=== PATIENT | male | born 1935 | race Caucasian/White ===

== ENCOUNTER 2023-02-24 21:41 | Emergency (ER) | payer MEDICARE, BC, SELFPAY ==
[2023-02-24 21:45] VITALS: BP 149/77; PULSE 52; RESP 16; TEMP 36.4; O2SAT 99; BMI 23.1
--- NOTE | 2023-02-24 22:11 | CRLHL7_ITS ---
For Patients: As a result of the Century Cures Act, medical imaging exams and procedure reports are released immediately into your electronic medical record. You may view this report before your referring provider. If you have questions, please contact your health care provider. INDICATION: Low back, abdominal pain, history kidney stones TECHNIQUE: CT Abdomen and pelvis without i.v. contrast. Coronal and sagittal reformats were obtained. COMPARISON: 03/13/2017 FINDINGS: Lower chest: Unremarkable. Liver: Unremarkable. Spleen: Unremarkable. Pancreas: Unremarkable. Gallbladder: Multiple calcified gallstones are seen clustered in the gallbladder neck. Kidney: There is a stone within the right renal pelvis measuring 13 mm and a stone is seen within the left renal pelvis measuring 21 mm. No renal pelviectasis is seen in either kidney to suggest obstruction. Two small stones are seen in the upper pole of the right kidney measuring up to 4 mm. There is a stone in the lower pole of the left kidney measuring 15 mm. Low-density renal lesions are present bilaterally measuring up to 5 cm. These are incompletely characterized without the use of intravenous contrast. Adrenal: Unremarkable. Bowel: Unremarkable. The appendix is normal in appearance and size. Vascular: Moderate diffuse atherosclerotic calcifications of the abdominal aorta and its tributaries are present. Lymph: Unremarkable. Peritoneum: Unremarkable. No pneumoperitoneum is seen. No significant ascites is noted. Pelvis: Moderate enlargement of the prostate gland is noted. Soft tissue: Unremarkable. Bone: Unremarkable for age. IMPRESSIONS: 1. There is a stone within the right renal pelvis measuring 13 mm and a stone is seen within the left renal pelvis measuring 21 mm. No renal pelviectasis is seen in either kidney to suggest obstruction. 2. Moderate enlargement of the prostate gland is noted. Correlation with physical examination, PSA level, and/or MRI are recommended. Dictated by Christofer Nielsen MD @ 02/24/2023 11:05:14 PM Please note that all CT scans at this facility use dose modulation, iterative reconstruction, and/or weight-based dosing when appropriate to reduce radiation dose to as low as reasonably achievable. Dictated by: Christofer Nielsen MD @ 02/24/2023 23:05:21 (Electronically Signed)
--- NOTE | 2023-02-24 22:12 | ED.BACK ---
HPI - Back Pain/Injury General Chief Complaint: Back Injury/Pain Stated Complaint: pain in lower back. Time Seen by Provider: 02/24/23 21:45 History of Present Illness HPI Narrative: This 87-year-old male comes in with pain across his low back that began this afternoon. He did take [id number] medicines and his gabapentin without much relief. He does not describe any particular injury event or strenuous activity. He does have remote history of kidney stone but does not report any flank pain. He states that the pain is worse with certain movements and relieved when remaining still. He also reports some abdominal pain in his lower abdomen. Related Data Home Medications Medication Instructions Recorded Confirmed aspirin 81 mg capsule 81 mg PO QDAY 01/31/23 02/24/23 atorvastatin 40 mg tablet 40 mg PO DAILY 01/31/23 02/24/23 donepezil 10 mg tablet 10 mg PO DAILY 01/31/23 02/24/23 ergocalciferol (vitamin D2) 50 mcg 50 mcg PO QDAY 01/31/23 01/31/23 (2,000 unit) capsule gabapentin 300 mg capsule 600 mg PO Q8H 01/31/23 02/24/23 latanoprost 0.005 % eye drops drp ophthalmic (eye) 01/31/23 01/31/23 lisinopril 10 mg tablet 10 mg PO DAILY 01/31/23 02/24/23 mecobalamin (vitamin B12) 500 mcg mcg PO 01/31/23 01/31/23 chewable tablet metoprolol tartrate 25 mg tablet 25 mg PO DAILY 01/31/23 02/24/23 multivitamin (Multiple Vitamins 1 tab PO QAM 01/31/23 02/24/23 tablet) potassium gluconate 500 mg (83 mg) 500 mg PO QDAY 01/31/23 02/24/23 tablet timolol maleate 0.5 % eye drops drp ophthalmic (eye) 01/31/23 01/31/23 Previous Rx's Medication Instructions Recorded hydrocodone 5 mg-acetaminophen 325 1 tab PO Q4-6H PRN pain #15 tabs 02/24/23 mg tablet Allergies Allergy/AdvReac Type Severity Reaction Status Date / Time cyclobenzaprine Allergy Intermediate Severe Verified 02/24/23 21:49 nausea oxycodone Allergy Intermediate Severe Verified 02/24/23 21:49 nausea methocarbamol Allergy Mild Nausea Verified 02/24/23 21:49 Penicillin Allergy Severe Anaphylaxis Uncoded 12/08/22 11:17 Review of Systems Status of ROS: Reports: 10 or more systems reviewed and unremarkable except as noted in History and below Narrative: Constitutional: No fevers, no weight gain or loss. Eyes: No discharge. No vision changes. HENT: No congestion, no sore throat, no ear pain. Cardiovascular: No chest pain, no palpitations. Respiratory: No shortness of breath, no wheezes, no cough. Gastrointestinal: No vomiting, no diarrhea. Diffuse pain in the lower abdomen. Genitourinary: No dysuria, no hematuria. Musculoskeletal: Normal range of motion. Low back pain as described above. Skin: No rashes, no pruritis. Neurological: No dizziness, weakness, sensory change, speech change. Endo/Heme/Allergies: No bruising or bleeding. No polydipsia. Pysch: no suicidality, no anxiety, no insomnia. All other systems reviewed and are negative. [facility] Social History Smoking Status: Never smoker Non-prescribed substance use: denies use Exam Narrative: Exam Narrative: Constitutional: Well-developed, well-nourished, no acute distress. HEENT: Normocephalic, atraumatic. Neck: Normal range of motion. Nontender. Supple. Heart: Regular. No murmurs. Normal rate. Intact distal pulses. Lungs: Clear to auscultation. No chest discomfort. No wheezes, rhonchi, or rales. Abdomen: Normal bowel sounds. Tenderness in the lower abdomen. No rebound tenderness. Genitalia: Deferred. Back: No midline tenderness. Normal range of motion. Pain is located all across the belt line area of the low back bilaterally. No pain radiating down either leg. Extremities: Normal range of motion. No injury. Skin: Intact. No rash. Warm. No erythema or pallor. Neurologic: No altered sensation. No weakness. Alert and oriented. Psychiatric: No suicidality. No anxiety or depression. No insomnia. Nursing notes and vitals signs are reviewed. Const: Vital Signs, click to edit/add: Vital Signs - 24 hr 02/24/23 21:45 Temperature 97.6 F Pulse Rate [Right Pulse Oximeter] 52 L Respiratory Rate 16 Blood Pressure [Le ft Upper Arm] 149/77 H Pulse Oximetry 99 Oxygen Delivery Me thod Room Air Course Vital Signs Vital signs: Initial Vital Signs Temperature 97.6 F 02/24/23 21:45 Temperature Source Temporal Artery Scan 02/24/23 21:45 Pulse Rate 52 L 02/24/23 21:45 Respiratory Rate 16 02/24/23 21:45 Blood Pressure 149/77 H 02/24/23 21:45 Blood Pressure Mean 101 02/24/23 21:45 Blood Pressure Position Sitting 02/24/23 21:45 Pulse Oximetry 99 02/24/23 21:45 Oxygen Delivery Method Room Air 02/24/23 21:45 Vital Signs Temperature 97.6 F 02/24/23 21:45 Pulse Rate 52 L 02/24/23 21:45 Respiratory Rate 16 02/24/23 21:45 Blood Pressure 149/77 H 02/24/23 21:45 Pulse Oximetry 99 02/24/23 21:45 Oxygen Delivery Method Room Air 02/24/23 21:45 Temperature 97.6 F 02/24/23 21:45 Pulse Rate 52 L 02/24/23 21:45 Respiratory Rate 16 02/24/23 21:45 Blood Pressure 149/77 H 02/24/23 21:45 Pulse Oximetry 99 02/24/23 21:45 Oxygen Delivery Method Room Air 02/24/23 21:45 MDM - Back Pain/Injury MDM Narrative Medical decision making narrative: This patient comes in with back pain across his lower back as described above. He does not report any injury event or strenuous activity. His presentation is more suspicious for a musculoskeletal cause for his pain. He does have some abdominal tenderness and reports a history of kidney stones. A CT scan of the abdomen and pelvis without contrast does show very large stones in each kidney. These are nonobstructive and not causing any symptoms for him. His scan is otherwise reassuring. There is a finding of some prostate hypertrophy. The patient did receive an intramuscular injection of morphine 6 mg in this brought great relief to his symptoms. He is okay to return home. His pain is likely musculoskeletal in nature. He did receive a prescription for some tablets of [place]. Imaging Data CT scan - abdomen: Radiologist's impression: 1. There is a stone within the right renal pelvis measuring 13 mm and a stone is seen within the left renal pelvis measuring 21 mm. No renal pelviectasis is seen in either kidney to suggest obstruction. 2. Moderate enlargement of the prostate gland is noted. Correlation with physical examination, PSA level, and/or MRI are recommended. Discharge Plan Discharge Clinical Impression: Low back pain Patient Disposition: Home w/ Parent or Adult Condition: Improved Additional Instructions: Take medication as needed and indicated. Increase activity as tolerated. Follow up with MD or return if worsening. Prescriptions: New hydrocodone-acetaminophen 5-325 mg tablet 1 tab PO Q4-6H PRN (Reason: pain) Qty: 15 0RF No Action donepezil 10 mg tablet 10 mg PO DAILY metoprolol tartrate 25 mg tablet 25 mg PO DAILY gabapentin 300 mg capsule 600 mg PO Q8H lisinopril 10 mg tablet 10 mg PO DAILY atorvastatin 40 mg tablet 40 mg PO DAILY timolol maleate 0.5 % drops ophthalmic (eye) latanoprost 0.005 % drops ophthalmic (eye) potassium gluconate 500 mg (83 mg) tablet 500 mg PO QDAY multivitamin [Multiple Vitamins] Tablet 1 tab PO QAM ergocalciferol (vitamin D2) 50 mcg (2,000 unit) capsule 50 mcg PO QDAY mecobalamin (vitamin B12) 500 mcg tablet,chewable PO aspirin 81 mg capsule 81 mg PO QDAY Follow Up/Referrals: Addison Tamayo MD, FAAD [Staff Physician] - Stand Alone Forms: [email or web address] Info Instructions
[2023-02-24] MEDS: MORPHINE 4 MG/ML INJ 6 MG IM (22:20)
[2023-02-24 23:00] VITALS: BP 123/54; PULSE 60; RESP 16; O2SAT 99
== END 2023-02-24 23:31 | disposition home or self-care (01) ==
PROVIDERS: Emergency Provider Emergency Medicine Emergency Medical Services; PCP Family Medicine
DX: M54.50 Low back pain, unspecified (principal)
CPT/HCPCS: 74176; 96372; 99283; 99284; M0243; J2270

== ENCOUNTER 2024-02-22 19:49 | Emergency (ER) | payer MEDICARE, BC, SELFPAY ==
[2024-02-22 20:04] VITALS: BP 153/93; PULSE 57; RESP 16; TEMP 36.3; O2SAT 97; BMI 26.2
--- NOTE | 2024-02-22 20:59 | CRLHL7_ITS ---
For Patients: As a result of the Cures Act, medical imaging exams and procedure reports are released immediately into your electronic medical record. You may view this report before your referring provider. If you have questions, please contact your health care provider. INDICATION: Sudden onset pelvic hip pain causing fall TECHNIQUE: Pelvis radiograph, Hip radiograph 3 views left COMPARISON: None FINDINGS: Bone: No acute fractures or aggressive bone lesions are identified. Moderate diffuse osteopenia is present. 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 The visualized sacroiliac joints are unremarkable in appearance. The pubic symphysis is normal in appearance. Soft tissue: Unremarkable. The visualized bowel gas pattern of the pelvis is unremarkable in appearance. No radiopaque foreign bodies are seen. IMPRESSION: 1. No acute osseous injuries or abnormalities are noted. Dictated by Christofer Nielsen MD @ 02/22/2024 10:41:45 PM Dictated by: Christofer Nielsen MD @ 02/22/2024 22:41:50 (Electronically Signed)
--- NOTE | 2024-02-22 21:00 | ED.BACK ---
HPI - Back Pain/Injury General Chief Complaint: Back Injury/Pain Stated Complaint: back pain radiating down legs Time Seen by Provider: 02/22/24 20:53 History of Present Illness HPI Narrative: This 88-year-old male comes in reporting severe low back pain on the left side radiating down his left leg below his knee. 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 He states that he was walking and turned and had sudden onset of severe pain that caused him to lose strength in fall to the ground. He states that he was able to get up and ambulate back to his home. He does not report a specific injury event but comes in with severe pain in his left lower back radiating down his left leg. Related Data Home Medications ?Medication ?Instructions ?Recorded ?Confirmed aspirin 81 mg capsule 81 mg PO QDAY 01/31/23 09/30/23 atorvastatin 40 mg tablet 40 mg PO DAILY 01/31/23 09/30/23 donepezil 10 mg tablet 10 mg PO DAILY 01/31/23 09/30/23 ergocalciferol (vitamin D2) 50 mcg 50 mcg PO QDAY 01/31/23 09/30/23 (2,000 unit) capsule gabapentin 300 mg capsule 600 mg PO Q8H 01/31/23 09/30/23 latanoprost 0.005 % eye drops drp ophthalmic (eye) 01/31/23 09/30/23 lisinopril 10 mg tablet 10 mg PO DAILY 01/31/23 09/30/23 mecobalamin (vitamin B12) 500 mcg mcg PO 01/31/23 09/30/23 chewable tablet metoprolol tartrate 25 mg tablet 25 mg PO DAILY 01/31/23 09/30/23 multivitamin (Multiple Vitamins 1 tab PO QAM 01/31/23 09/30/23 tablet) potassium gluconate 500 mg (83 mg) 500 mg PO QDAY 01/31/23 09/30/23 tablet timolol maleate 0.5 % eye drops drp ophthalmic (eye) 01/31/23 09/30/23 Previous Rx's ?Medication ?Instructions ?Recorded hydrocodone 5 mg-acetaminophen 325 1 tab PO Q4-6H PRN pain #15 tabs 02/24/23 mg tablet hydrocodone 5 mg-acetaminophen 325 1 tab PO Q4-6H PRN pain #14 tabs 02/22/24 mg tablet Allergies Allergy/AdvReac Type Severity Reaction Status Date / Time cyclobenzaprine Allergy Intermediate Severe Verified 09/30/23 12:15 nausea oxycodone Allergy Intermediate Severe Verified 09/30/23 12:15 nausea methocarbamol Allergy Mild Nausea Verified 09/30/23 12:15 Penicillin Allergy Severe Anaphylaxis Uncoded 09/30/23 12:15 Review of Systems Status of ROS: Reports: 10 or more systems reviewed and unremarkable except as noted in History and below Narrative: Constitutional: No fevers, no weight gain or loss. Eyes: No discharge. No vision changes. HENT: No congestion, no sore throat, no ear pain. Cardiovascular: No chest pain, no palpitations. Respiratory: No shortness of breath, no wheezes, no cough. Gastrointestinal: No abdominal pain, no vomiting, no diarrhea. Genitourinary: No dysuria, no hematuria. Musculoskeletal: Low back pain radiating down the left leg. Skin: No rashes, no pruritis. Neurological: No dizziness, weakness, sensory change, speech change. Endo/Heme/Allergies: No bruising or bleeding. No polydipsia. Pysch: no suicidality, no anxiety, no insomnia. All other systems reviewed and are negative. PFSH [facility] Social History Smoking Status: Never smoker Non-prescribed substance use: denies use Exam Narrative: Exam Narrative: Constitutional: Well-developed, well-nourished, no acute distress. HEENT: Normocephalic, atraumatic. Neck: Normal range of motion. Nontender. Supple. Heart: Regular. No murmurs. Normal rate. Intact distal pulses. Lungs: Clear to auscultation. No chest discomfort. No wheezes, rhonchi, or rales. Abdomen: Normal bowel sounds. Nontender. No rebound tenderness. Genitalia: Deferred. Back: No midline tenderness. Normal range of motion. Extremities: The patient is unable to raise his left leg from the bed due to pain. He did have some pain with stress to his pelvis and log-rolling his left leg. Skin: Intact. No rash. Warm. No erythema or pallor. Neurologic: No altered sensation. No weakness. Alert and oriented. Psychiatric: No suicidality. No anxiety or depression. No insomnia. Nursing notes and vitals signs are reviewed. Const: Vital Signs, click to edit/add: Vital Signs - 24 hr 02/22/24 20:04 Temperature 97.4 F L Pulse Rate [Pulse Oximeter] 57 L Respiratory Rate 16 Blood Pressure [Ri ght Upper Arm] 153/93 H Pulse Oximetry 97 Oxygen Delivery Me thod Room Air Course Vital Signs Vital signs: Initial Vital Signs Temperature 97.4 F L 02/22/24 20:04 Temperature Source Temporal Artery Scan 02/22/24 20:04 Pulse Rate 57 L 02/22/24 20:04 Respiratory Rate 16 02/22/24 20:04 Blood Pressure 153/93 H 02/22/24 20:04 Blood Pressure Mean 113 H 02/22/24 20:04 Blood Pressure Position Supine 02/22/24 20:04 Pulse Oximetry 97 02/22/24 20:04 Oxygen Delivery Method Room Air 02/22/24 20:04 Vital Signs Temperature 97.4 F L 02/22/24 20:04 Pulse Rate 57 L 02/22/24 20:04 Respiratory Rate 16 02/22/24 20:04 Blood Pressure 153/93 H 02/22/24 20:04 Pulse Oximetry 97 02/22/24 20:04 Oxygen Delivery Method Room Air 02/22/24 20:04 Temperature 97.4 F L 02/22/24 20:04 Pulse Rate 57 L 02/22/24 20:04 Respiratory Rate 16 02/22/24 20:04 Blood Pressure 153/93 H 02/22/24 20:04 Pulse Oximetry 97 02/22/24 20:04 Oxygen Delivery Method Room Air 02/22/24 20:04 Medications Administered Medications: Discontinued Medications Generic Name Dose Route Start Last Admin Trade Name Freq PRN Reason Stop Dose Admin Morphine Sulfate 6 mg 02/22/24 20:58 02/22/24 21:10 Morphine 10 Mg/Ml Inj IM 02/22/24 20:59 6 mg ONCE ONE Administration MDM - Back Pain/Injury MDM Narrative Medical decision making narrative: This patient has chronic low back pain with degenerative disc disease but comes in with sudden severe onset of pain as described above. I did order x-ray of his left hip as he did have difficulty raising his left leg and some pain when log-rolling his left leg. X-ray results are not yet back at the end of my shift and Dr. Soriano will look after results. The patient did receive an intramuscular injection of morphine 6 mg. I did provide [facility] prescriptions for [place] and Flexeril. Discharge Plan Discharge Clinical Impression: Lumbar radiculopathy Prescriptions: New hydrocodone-acetaminophen 5-325 mg tablet 1 tab PO Q4-6H PRN (Reason: pain) Qty: 14 0RF No Action donepezil 10 mg tablet 10 mg PO DAILY metoprolol tartrate 25 mg tablet 25 mg PO DAILY gabapentin 300 mg capsule 600 mg PO Q8H lisinopril 10 mg tablet 10 mg PO DAILY atorvastatin 40 mg tablet 40 mg PO DAILY timolol maleate 0.5 % drops ophthalmic (eye) latanoprost 0.005 % drops ophthalmic (eye) potassium gluconate 500 mg (83 mg) tablet 500 mg PO QDAY multivitamin [Multiple Vitamins] Tablet 1 tab PO QAM ergocalciferol (vitamin D2) 50 mcg (2,000 unit) capsule 50 mcg PO QDAY mecobalamin (vitamin B12) 500 mcg tablet,chewable PO aspirin 81 mg capsule 81 mg PO QDAY hydrocodone-acetaminophen 5-325 mg tablet 1 tab PO Q4-6H PRN (Reason: pain) Qty: 15 0RF Follow Up/Referrals: Marc Shields MD [Primary Care Provider] -
[2024-02-22] MEDS: MORPHINE 10 MG/ML inj 6 MG IM (21:10)
--- OUTSIDE RECORDS SUMMARY | 2024-02-22 21:29 | XMS_ITS | Clinical Summary ---
Author Organization [facility] Address [place], [place] [address] Care Team Providers Care Head Of Stock Name Role Phone Thomas Elena Mora Unavailable Elena Guzman AuD Unavailable [phone] Chuck Ivan MD Unavailable [phone] Don Trujillo MD Unavailable Marc Shields MD Primary Care Provider [phone] Allergies Active Allergy Reactions Criticality Noted Date Comments Cyclobenzaprine Nausea And Vomiting 07/10/2011 Methocarbamol Nausea And Vomiting 07/10/2011 Oxycodone Nausea Only 10/07/2018 Penicillins Anaphylaxis 06/25/2006 Medications Medication Sig Dispensed Refills Start Date End Date Status Walker with Wheels For home use, 99 months, diagnosis: (724.02) Lumbar spinal stenosis, (721.3) Lumbar facet arthropathy 1 Device 0 07/27/2013 Active latanoprost (XALATAN) 0.005 % ophthalmic solutionIndications :Other glaucoma of both eyes Place 1 Drop into left eye at bedtime. 2.5 mL 0 09/10/2015 Active cyanocobalamin (VITAMIN B12) 500 mcg tablet Take by mouth once daily. 0 12/09/2015 Active timolol maleate (TIMOPTIC) 0.5 % ophthalmic solution 11 02/15/2017 Activ e BiPapIndications:OS A (obstructive sleep apnea) ASV machine for home use at pressure: 5cm/H2O PS 3-15 cm/H2O BR-auto , Heated humidifier x 1, Humidifier chamber x 1, 1 Device 11 10/06/2018 Active sennosides (SENNA) 8.6 mg tabletIndications:C hronic constipation Take 2 tablets by mouth 2 times daily if needed for Constipation. 0 01/02/2019 Active vitamin E acetate (VITAMIN E ORAL) Take 180 mg by mouth 2 times daily. Active potassium gluconate 595 mg (99 mg) TbER Take 99 mg by mouth 2 times daily. Active MULTIVITAMIN ORAL Take 1 Dose by mouth 2 times daily. Active BiPapIndications:OS A (obstructive sleep apnea) ASV/BIPAP machine for home use at pressure: epap 5 PS 3-15, full face mask x1/3month with a full face cushion x1/mo Heated humidifier x 1/5 year, Humidifier chamber x 1/6mo, Heated tubing x 1/3mo, Headgear x 1/6mo,Chin strap x 1/6 months, Filters:Disposable x 2pk/1mo & Reusable x 1pk/6mo [id number] Usage- daily 1 Device 05/23/2020 Active aspirin (ECOTRIN) 81 mg enteric coated tabletIndications:C oronary artery disease involving chenega coronary artery of chenega heart without angina pectoris Take 1 Tablet (81 mg) by mouth once daily with a meal. 0 07/29/2022 Active acetaminophen (TYLENOL EXTRA STRGTH) 500 mg tablet Take 1,000 mg by mouth three times daily. Max acetaminophen dose: 4000mg in 24 hrs. Active atorvastatin (LIPITOR) 40 mg tabletIndications:C oronary artery disease involving chene[place] coronary artery of chene[place] heart without angina pectoris,Mixed hyperlipidemia Take 1 Tablet (40 mg) by mouth once daily. 90 Tablet 3 07/23/2023 Active donepeziL (ARICEPT) 10 mg tabletIndications:L ate onset Alzheimer's disease without behavioral disturbance (HC) Take 1 Tablet (10 mg) by mouth at bedtime. 90 Tablet 3 07/23/2023 Active gabapentin (NEURONTIN) 300 mg capsuleIndications: Neck pain, chronic,Polyneuropa thy,Spinal stenosis of lumbar region with neurogenic claudication Take 2 Capsules (600 mg) by mouth three times daily. 540 Capsule 3 07/23/2023 Active lisinopriL (PRINIVIL; ZESTRIL) 10 mg tabletIndications:E ssential hypertension Take 1 Tablet (10 mg) by mouth once daily. 90 Tablet 3 07/23/2023 Active metoprolol tartrate (LOPRESSOR) 25 mg tabletIndications:C oronary artery disease involving chenega coronary artery of chene[place] heart without angina pectoris,Essential hypertension Take 1 Tablet (25 mg) by mouth once daily in the evening. 90 Tablet 3 07/23/2023 Active Active Problems Problem Noted Date Diagnosed Date Late onset Alzheimer's disea se without behavioral disturbance 08/27/2020 Overview: Refuses MMSE testing. Pulse is in 40s as of 07/23/2023. They will monitor his pulse and if it gets below 40 or he gets symptoms, they will let me know. 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 myoview stress test 06/28/06 ERLIN x1 to LAD 08/30/2019 Foraminal stenosis of cervical region 11/25/2018 Polyneuropathy 11/22/2018 Primary central sleep apnea 10/06/2018 Gallbladder calculus without cholecystitis 12/09 Nephrolithiasis 12/10/2015 Overview: Bilateral , multiple calculi. Diverticulosis of large intestine without hemorr lorena 12/10/2015 OAS 11/25/2015 AHI-12, severe in supine position 0 12/09/2015 Essential hypertension 09/10/2015 Glaucoma of both eyes 09/10/2015 Stiffness of vertebral colum n, possible ankylosing spondylitis 03/05/2014 Spinal stenosis of lumbar re gion with neurogenic claudication 08/27/2013 Radiculopathy of leg 06/14/2013 Chronic rhinitis 09/05/2012 Cervical stenosis of spinal canal 04/11/2012 Insomnia, unspecified 07/30/2010 Overview: Improved sleep after omitting wine with dinner. 07/10/2011 Impaired fasting glucose 02/09/2010 Left arm pain 10/09/2009 Overview: Due to cervical osteoarthritis? Sensorineural hearing loss, bilateral 01/25/2009 Special screening for malignant neoplasm of pros wallace 02/01/2008 Adjustment disorder with mixed anxiety and depre ssed mood 07/12/2007 BILE ACID REFLUX 07/08/2007 ROUTINE GENERAL MEDICAL EXAM 04/21/2007 Overview: colonoscopy 03/02/2005 Recheck 10 yrs Mixed hyperlipidemia 01/04/2007 Peyronie's disease 11/04/2006 Renal colic 11/04/2006 Degeneration of cervical intervertebral disc History of coronary artery disease Overview: LAD/D stents 1997; angio [address] angio 06/25/06; stents patent; prob not significant in stent restenosis Nl EF Neg. myoview stress test 06/28/06 Resolved Problems Problem Noted Date Diagnosed Date Resolved Date History of coronary artery disease 04/26/2019 04/26/2019 Unspecified glaucoma 08/06/2010 016 Chest pain, unspecified 07/04/2007 07/0 12/2009 Overview: -c/o exertional chest pain Unspecified sleep apnea 11/04/200609/24 Unspecified glaucoma 11/04/2006 016 Chest pain, unspecified 06/25/2006 1101/2006 Esophageal reflux 08/06/2010 Immunizations Name Administration Dates Next Due AMB Influenza, IIV3 (Age >=3 years)(Flu Clinic Only) 05/26/2013,05/25/2012,06/11/2010,2007 COVID-19 vaccine (Moderna 50mcg/0.5mL) 12YO+ BIVALENT PF, MDV 05/19/2022 COVID-19 vaccine (VISup-Bio NTech 30mcg/0.3mL) PF, MDV 06/05/2021,10/19/2020,09/28/2020 Influenza A (H1N1), Inactiva kirill (Age >=3 Years) 08/27/2009 Influenza, High-dose Inactivated 019,06/17/2018,05/20/2017,2015,04/23/2016,05/20/2015,06/15/2014 Influenza, High-dose Quadriv alent Inactivated 05/19/2023,06/08/2022,05/09/2021,2019 Influenza, IIV3 (Age >=3 years) 05/27/2011,06/28,06/23/2006 Influenza, Inactivated AIIV4 (Age 65+ Years) Preserv Free 05/09/2021 Influenza, Inactivated IIV3 (Age 65+ Years) Preserv Free 04/25/2020,06/15/2019,05/23/2018,2016 Pneumococcal Poly,23-Valent (Pneumovax) 12/22/2003 Pneumococcal conj 13-Valent (Prevnar 13) 09/10/2015 Td (Age >=7 Years) 10/05/2006 Td, Preservative Free (age > = 7 Years) 10/05/2006 Tdap 07/29/2012 Zoster (Shingrix-RZV, recombinant) 07/06/2018, Zoster (Zostavax-ZVL, live) 01/04/2007 Family History Medical History Relation Name Comments Psychiatric illness Daughter 2 Evelyn Social A nxiety Heart Disease Father Xavi undiagnosed Rh eumatic Fever as a Child Psychiatric illness Father Xavi alzheime rs Cancer-prostate Maternal Grandfather Diabetes Maternal Grandfather Cancer Mother Aliza bone Kidney disease Mother Aliza Diabetes Paternal Grandfather Relation Name Status Comments Brother Gil Alive Daughter 1 evelyn Alive Daughter 2 Evelyn Father Xavi (Age 88) Maternal Grandfather Mother Aliza (Age 49) Paternal Grandfather Son 1 xavi Alive Son 2 shin Alive Adopted Social History Tobacco Use Types Packs/Day Years Used Date Smoking Tobacco: Former Cigarettes 1 30 1 - 06/15/1977 Smokeless Tobacco: Never Tobacco Cessation:Counseling Given: Not Answered Alcohol Use Standard Drinks/Week Comments Not Currently 0 (1 standard drink = 0.6 oz pur e alcohol) 2 times per year PHQ-2 Answer Date Recorded PHQ-2 TOTAL SCORE 1 07/23/2023 Social Connections Answer Date Recorded Frequency of Communication with Friends and Fami ly 0 07/23/2023 Financial Resource Strain Answer Date R ecorded Difficulty of Paying Living Expenses 3 07/23/2023 Difficulty of Paying Living Expenses Not on file 07/23/2023 Food Insecurity Answer Date Recorded Worried About Running Out of Food in the Last Ye ar 1 07/23/2023 Transportation Needs Answer Date Record ed Lack of Transportation (Medical) 1 07/23/2023 Housing Stability Answer Date Recorded Unable to Pay for Housing in the Last Year 1 07/23/2023 Sex and Gender Information Value Date Recorded Sex Assigned at Not on file Gender Identity Not on file Sexual Orientation Not on file Obstetrics History Last Filed Vital Signs Vital Sign Reading Time Taken Comments Blood Pressure 103/63 07/23/2023 9:[address] [facility] Pulse 46 07/23/2023 9:[address] [facility] manual check Temperature 36.4 ??C (97.6 ??F) 05/26/2023 9 :17 AM CDT Respiratory Rate 16 06/25/2020 10:[address] [facility] Oxygen Saturation 100% 05/26/2023 9:1 7 AM CDT Inhaled Oxygen Concentration - - Weight 89.7 kg (197 lb 12.8 oz) 07/23/2023 9:[address] [facility] Height 190.5 cm (6' 3) 07/23/2023 9:[address] MAGISTRATE Body Mass Index 24.72 07/23/2023 9:[address] MAGISTRATE Plan of Treatment Health Maintenance Due Date Last Done Comments Tetanus booster 07/29/2022 07/29/2012, 09/23, 10/05/2006 COVID-19 vaccine series ( season) 2023 05/19/2022, 12/10/2021, 06/05/2021, Additional history exists Influenza for age 65+ 04/23/2024 05/19/2023 , 06/08/2022, 05/09/2021, Additional history exists BMI (ht and wt on same day) for age 18+ 07/23/2024 07/23/2023, 12/02/2021, 05/13/2021, Additional history exists Medicare Wellness for age 65+ 07/23/2024, 06/26/2020, 09/10/2015, Additional history exists Tdap Completed 07/29/2012 Pneumococcal series for age 65+ Completed 6, 12/22/2003 Zoster (shingles) series for age 50+ Completed 07/06/2018, 02/16/2018, 01/04/2007 Advance Directives Documents on File Type Date Recorded Patient Certified Nursing Assistant Instructor Expl anation Power of Lock Operator 10/21/2006 Healthcare Directive 10/21/2006 * Full Code (Latest Code Status on File) Date Activated Date Inactivated Comments 08/30/2019 9:07 AM 08/31/2019 12:50 PM * Full Code Date Activated Date Inactivated Comments 07/03/2007 7:52 PM 07/04/2007 5:46 PM * Full Code Date Activated Date Inactivated Comments 10/19/2006 7:11 PM 10/20/2006 3:42 PM * Full Code Date Activated Date Inactivated Comments 10/19/2006 1:46 PM 10/19/2006 7:11 PM * Full Code Date Activated Date Inactivated Comments 06/25/2006 2:32 PM 06/28/2006 6:27 PM Care Teams Head Of Stock Relationship Specialty Start Date End Date Marc Shields [place] [address] PCP - General Family Practice 06/11/22 Elena Guzman AuD Audiology 10/23/05 Elena Guzman AuD Audiology 07/29/12 Chuck Ivan MD Surgery - Otolaryngology 07/29/12 Don Trujillo MD [address] [place] [id number] Sports Medicine 07/29/12
[2024-02-22] MEDS: ONDANSETRON ODT 4 MG TAB PO (23:45)
[2024-02-22] MEDS: IBUPROFEN 200 MG TABLET 400 MG PO (23:47)
[2024-02-22] MEDS: OXYCODONE 5 MG TABLET PO (23:47)
[2024-02-22] MEDS: LIDOCAINE 5% PATCH 1 PATCH TRANSDERMA (23:52)
== END 2024-02-23 00:42 | disposition home or self-care (01) ==
PROVIDERS: Emergency Provider Emergency Medicine Emergency Medical Services; PCP Family Medicine
DX: M54.16 Radiculopathy, lumbar region (principal)
CPT/HCPCS: 73502; 96372; 99283; 99284; A9270; J2270

== ENCOUNTER 2024-10-04 10:00 | Emergency (ER) | payer MEDICARE, BC, SELFPAY ==
[2024-10-04] VITALS (22 sets, daily range): BP systolic 144–182; BP diastolic 70–135; PULSE 47–58; RESP 18–20; TEMP 36.4–36.6; O2SAT 96–98; BMI 25.6
--- NOTE | 2024-10-04 10:46 | ED.GENADULT ---
HPI - General Adult General Date Seen: 10/04/24 Chief complaint: Unspecified Complaint, Adult Stated complaint: Hypertension Time Seen by Provider: 10/04/24 10:45 History of Present Illness HPI narrative: 89 yo M with a history of dementia, hypertension, coronary artery disease, hyperlipidemia, glaucoma, history of gallstones, diverticulosis, cervical stenosis kidney stones, His medication list from online [facility] include Acetaminophen p.r.n. Aspirin 81 mg Atorvastatin Vitamin B12 Donepezil Neurontin 600 mg t.i.d. (for neck pain and neuropathy) Xalatan eyedrops Timolol eyedrops Lisinopril 10 mg Potassium tablets Senna p.r.n. He presents to the ER today after being referred from urgent care. provides most of his history because of his dementia. He was referred from the urgent care. Per the urgent care notes he was referred because he was not feeling well this morning. Blood pressure in urgent care was 216/94. Pulse 63. Temp 97.5?. O2 sat 94%. Because of his elevated blood pressure urgent care staff wanted to send the patient to the ER by ambulance. His did not think he was set sick so she brought him here by private car. The history is obtained primarily from the patient's . Patient has dementia and is a very poor historian. It sounds like he is more confused than baseline today. Be when asked the patient what is wrong, he really can not answer. He seems to indicate that he could not figure out where he was or what he was doing. He is not able to answer simple questions. For instance if I ask him if he has a headache, he pauses, seems to think, and then does not answer. He is not having any slurred speech or expressive aphasia History from his that he does have dementia but is normally ambulatory and able to care for himself at home. They got up at about 7 today. He did get himself dressed and then came down for breakfast. He did not want eat breakfast and apparently just was not feeling well. This was very unusual for him. She could get any further information from him about what was not well. Unclear if he was having pain, nausea, shortness of breath or what. He is still very confused but seems to be a little bit more acting himself now that he is here in the ER. He does have new bilateral lower extremity peripheral edema. says she has not really noted that before. It sounds like she does not look carefully at his ankles every day so unclear if that truly started stay orbits been there for several days. He does not take any diuretics. is not aware of any history of CHF. Related Data Home Medications ?Medication ?Instructions ?Recorded ?Confirmed aspirin 81 mg capsule 81 mg PO QDAY 01/31/23 10/04/24 atorvastatin 40 mg tablet 40 mg PO DAILY 01/31/23 10/04/24 donepezil 10 mg tablet 10 mg PO DAILY 01/31/23 10/04/24 ergocalciferol (vitamin D2) 50 mcg 50 mcg PO QDAY 01/31/23 10/04/24 (2,000 unit) capsule latanoprost 0.005 % eye drops 1 drp ophthalmic (eye) HS 01/31/23 10/04/24 lisinopril 10 mg tablet 10 mg PO DAILY 01/31/23 10/04/24 mecobalamin (vitamin B12) 500 mcg mcg PO 01/31/23 10/04/24 chewable tablet metoprolol tartrate 25 mg tablet 25 mg PO DAILY 01/31/23 10/04/24 multivitamin (Multiple Vitamins 1 tab PO QAM 01/31/23 10/04/24 tablet) potassium gluconate 500 mg (83 mg) 500 mg PO QDAY 01/31/23 10/04/24 tablet timolol maleate 0.5 % eye drops 1 drp ophthalmic (eye) Q12H 01/31/23 10/04/24 gabapentin 300 mg capsule 600 mg PO Q8H 10/04/24 10/04/24 Previous Rx's ?Medication ?Instructions ?Recorded cefdinir 300 mg capsule 300 mg PO BID 7 days #14 caps 10/04/24 Allergies Allergy/AdvReac Type Severity Reaction Status Date / Time cyclobenzaprine Allergy Intermediate Severe Verified 10/04/24 12:26 nausea oxycodone Allergy Intermediate Severe Verified 10/04/24 12:26 nausea methocarbamol Allergy Mild Nausea Verified 10/04/24 12:26 Penicillins Allergy Anaphylaxis Verified 10/04/24 12:26 PFSH PFSH Social History Smoking Status: Never smoker Do you use any of these nicotine containing products: None Second hand tobacco smoke exposure: No How often do you have a drink containing alcohol: never How often do you have six or more drinks on one occasion: Never AUDIT-C Alcohol total score: 0 Non-prescribed substance use: denies use service: No Exam Narrative: Exam Narrative: Constitutional: Appears well-developed and well-nourished. Sleeping but easily arouses to voice and once awakened seems to maintain alertness. He is polite. He is very confused. He has generalized weakness and is not able to sit up in bed unassisted. He is not able to answer questions HENT: Head: Atraumatic. No depressed skull fracture, Raccoon Eyes, Menezes's sign, or hemotympanum. Face normal. TMs normal Nose: Nose normal. Mouth/Throat: Oral mucosa is clear and moist. no trismus. Pharynx normal. Tonsils symmetric. No tonsillar enlargement, erythema, or exudate. Eyes: Conjunctivae normal. EOM normal. Pupils equal, round, and reactive to light. No scleral icterus. Neck: Normal range of motion. Neck supple. No tracheal deviation present. No JVD Cardiovascular: Normal rate, regular rhythm. No gallop. No friction rub. No murmur heard. Symmetric radial artery pulses Pulmonary/Chest: Effort normal. No stridor. No respiratory distress. No wheezes. No rales. No rhonchi . No tenderness. Abdominal: Soft. No CVA tenderness.. No distension. No mass. No tenderness. No rebound. No guarding. Musculoskeletal: RUE: Normal range of motion. No tenderness. No deformity LUE: Normal range of motion. No tenderness. No deformity RLE: Normal range of motion. 2+ edema. No tenderness. No deformity LLE: Normal range of motion. 2+ edema. No tenderness. No deformity Lymph: No cervical adenopathy. Neurological: Alert and oriented to person, but not place or date. It sounds like he does have chronic dementia but is worse than normal.. Normal strength. CN II-VII intact. No sensory deficit. GCS eye subscore is 4. GCS verbal subscore is 5. GCS motor subscore is 6. Normal coordination no focal deficits. Generalized weakness. Telegraph [employer] strength 5/5. Unable to sit forward in bed due to weakness. Able to lift each leg off the bed. Skin: Skin is warm and dry. No rash noted. No pallor. Normal capillary refill. Psychiatric: Normal mood. Normal affect. Const: Vital Signs, click to edit/add: Vital Signs - 24 hr 10/04/24 10:29 10/04/24 10:52 10/04/24 11:00 Temperature 97.9 F Pulse Rate 50 L 53 L Pulse Rate [Pulse Oximeter] 54 L Respiratory Rate 18 Blood Pressure Blood Pressure [Ri ght Upper Arm] 170/82 H Pulse Oximetry 98 96 96 Oxygen Delivery Me thod Room Air 10/04/24 11:02 10/04/24 11:02 10/04/24 11:15 Temperature Pulse Rate 55 L 55 L 50 L Pulse Rate [Pulse Oximeter] Respiratory Rate Blood Pressure 161/89 H 161/89 H Blood Pressure [Ri ght Upper Arm] Pulse Oximetry 97 97 97 Oxygen Delivery Me thod 10/04/24 11:30 10/04/24 11:32 10/04/24 11:45 Temperature Pulse Rate 48 L 48 L 49 L Pulse Rate [Pulse Oximeter] Respiratory Rate Blood Pressure 162/70 H Blood Pressure [Ri ght Upper Arm] Pulse Oximetry 96 97 97 Oxygen Delivery Me thod 10/04/24 12:00 10/04/24 12:24 10/04/24 12:30 Temperature 97.6 F Pulse Rate 54 L 53 L Pulse Rate [Pulse Oximeter] Respiratory Rate Blood Pressure Blood Pressure [Ri ght Upper Arm] Pulse Oximetry 97 97 Oxygen Delivery Me thod 10/04/24 12:32 10/04/24 12:45 10/04/24 13:00 Temperature Pulse Rate 53 L 50 L 50 L Pulse Rate [Pulse Oximeter] Respiratory Rate Blood Pressure 158/78 H Blood Pressure [Ri ght Upper Arm] Pulse Oximetry 97 98 97 Oxygen Delivery Me thod 10/04/24 13:02 10/04/24 13:15 10/04/24 13:33 Temperature Pulse Rate 50 L 56 L Pulse Rate [Pulse Oximeter] Respiratory Rate Blood Pressure 167/76 H 166/135 H Blood Pressure [Ri ght Upper Arm] Pulse Oximetry 97 96 Oxygen Delivery Me thod 10/04/24 13:38 10/04/24 13:45 10/04/24 14:07 Temperature Pulse Rate 58 L 47 L Pulse Rate [Pulse Oximeter] Respiratory Rate Blood Pressure 144/83 H Blood Pressure [Ri ght Upper Arm] Pulse Oximetry 98 97 Oxygen Delivery Me thod 10/04/24 14:34 10/04/24 16:31 Temperature Pulse Rate Pulse Rate [Pulse Oximeter] 54 L Respiratory Rate 20 Blood Pressure 182/77 H Blood Pressure [Ri ght Upper Arm] 180/83 H Pulse Oximetry 96 Oxygen Delivery Me thod Room Air Course Course ED Course: Recheck-patient looking a bit more alert now. Still disoriented and apparently some closer to his baseline with dementia. Still somewhat weak Recheck-nurse's note he was able to get up and walk in the hallway to go try to go to the bathroom. In the bathroom he was confused and having trouble pulling down his pants. Reevaluation(s) Reevaluation #1: Recheck-discussed with hospitalist who would agree to admit the patient for weakness and confusion in the setting of UTI and possible CHF Recheck-discussed plans with the patient and his . is noting that he is now doing much better than he was when he arrived. Although our initial impression is that he would probably need to be admitted for weakness and confusion he is doing better now. She expresses her preference to take him home. She and I had a detailed discussion. The patient's nurses feel that he is still confused and weak and would be best to stay in the hospital. My recommendation was for the patient to be admitted as well. Concern here is potential risk for worsening illness, such as developing sepsis with UTI and also potential for problems with breathing if he has CHF. It would be safest to admit him where he can be in a monitored setting. However if we admit him to the hospital he is at risk for sundowning and worsening delirium. feels that there would be advantages to taking him home, specifically that he seems to be more cogent and less confused in his home environment. She and I discussed the risk that he might get weaker or dizzy or fall leading to injury at home. Overall she feels that the benefits of discharging home would outweigh the risks. She would prefer not to keep him in the hospital. At this point his blood pressure is stable. He is able to ambulate. She was able to assist him in getting dressed. She feels comfortable taking him home. Return precautions reviewed After this discussion I updated our hospitalist and we cancelled his plans for admission He will need outpatient follow-up with PCP for recheck within the next 2-4 days with repeat labs, chest x-ray. Precautions for return to the ER reviewed. They are invited to return any time if feels like he is getting worse or more unsteady Vital Signs Vital signs: Initial Vital Signs Temperature 97.9 F 10/04/24 10:29 Temperature Source Temporal Artery Scan 10/04/24 10:29 Pulse Rate 54 L 10/04/24 10:29 Respiratory Rate 18 10/04/24 10:29 Blood Pressure 170/82 H 10/04/24 10:29 Blood Pressure Mean 111 H 10/04/24 10:29 Pulse Oximetry 98 10/04/24 10:29 Oxygen Delivery Method Room Air 10/04/24 10:29 Vital Signs Temperature 97.9 F 10/04/24 10:29 Pulse Rate 54 L 10/04/24 10:29 Respiratory Rate 18 10/04/24 10:29 Blood Pressure 170/82 H 10/04/24 10:29 Pulse Oximetry 98 10/04/24 10:29 Oxygen Delivery Method Room Air 10/04/24 10:29 Temperature 97.6 F 10/04/24 12:00 Pulse Rate 54 L 10/04/24 16:31 Respiratory Rate 20 10/04/24 16:31 Blood Pressure 180/83 H 10/04/24 16:31 Pulse Oximetry 96 10/04/24 16:31 Oxygen Delivery Method Room Air 10/04/24 16:31 Medications Administered Medications: Discontinued Medications Generic Name Dose Route Start Last Admin Trade Name Freq PRN Reason Stop Dose Admin Acetaminophen 1,000 mg 10/04/24 11:05 10/04/24 11:35 Acetaminophen 500 Mg Tablet PO 10/04/24 11:06 1,000 mg ONCE ONE Administration Sodium Chloride 1,000 mls @ 1,000 mls/hr 10/04/24 11:15 10/04/24 11:35 0.9 % Sodium Chloride 1000 Ml IV 10/04/24 12:14 1,000 mls/hr .Q1H LEXY Administration Ceftriaxone Sodium 1 gm/ 100 mls @ 200 mls/hr 10/04/24 14:29 10/04/24 15:48 Sodium Chloride IVPB 10/04/24 14:30 Infused ONCE ONE Infusion Medical Decision Making MDM Narrative Medical decision making narrative: 89-year-old male with a history of dementia brought to the ER today from home by his with concern for acute change. This morning he just felt ?not well. In here in the ER he has generalized nonfocal weakness and acute on chronic confusion Neuro. No focal deficits to suggest stroke. No known fall and is not anticoagulated. Head CT is obtained and is negative for any acute intracranial hemorrhage, mass effect, hydrocephalus, or other abnormality. No reported of seizure activity. Blood sugar is normal. He is not febrile. Cardiac. EKG is nonischemic. Troponin is negative x2. No clear evidence for active ACS causing his symptoms. Consider possible CHF . Does have new bilateral lower extremity peripheral edema. Chest x-ray shows tiny bilateral pleural effusions and mild prominence of the pulmonary interstitial markings. In terminal proBNP is abnormal at 12:50 p.m.. No previous for comparison. He is not hypoxic or particularly short of breath. Renal. Kidney function normal. Sodium and potassium and electrolytes normal GI. No vomiting or diarrhea. LFTs normal. Lipase normal. He did have some abdominal tenderness on exam prompting CT which shows no acute findings. He does have incidentally noted bilateral intrarenal kidney stones which are not thought to be causing any symptoms. He also has gallstones without any evidence for acute cholecystitis or any focal right upper quadrant tenderness. Heme. Hemoglobin normal. No recent black or bloody stools. White count normal. Platelet count normal. He is not anticoagulated Infectious disease. Chest x-ray shows no obvious pneumonia. Influenza/RSV/COVID swab is negative. Urinalysis is abnormal showing hematuria and pyuria. Suspect there could be a UTI. Blood cultures pending. Will start with Rocephin IV here in the ER. At this point no clear sepsis physiology Disposition. Given overall confusion and generalized weakness, is not stable to discharge home with his , who is attentive, but unable to care for him in his current state. Therefore he will require admission. Discussed with hospitalist [] Lab Data Labs: Lab Results 10/04/24 10/04/24 10/04/24 Range/Units 11:20 13:19 Unknown WBC 9.69 (4.50-11.00) K/uL RBC 4.05 L (4.30-5.90) m/uL Hgb 13.7 (13.5-17.5) gm/dL Hct 41.3 (37.0-53.0) % MCV 102 H (80-100) fL MCH 34 (26-34) pg MCHC 33 (32-36) gm/dL RDW Coeff of [place]ita 12.8 (11.5-15.5) % Plt Count 150 (140-440) K/uL Neut % (Auto) 77.8 H (42.0-72.0) % Lymph % (Auto) 13.4 L (20-44) % [place] % (Auto) 8.0 (0.0-11.0) % Eos % (Auto) 0.3 (0.0-7.0) % Baso % (Auto) 0.3 (0.0-3.0) % Neut # (Auto) 7.50 H (1.7-7.0) K/uL Lymph # (Auto) 1.30 (0.90-2.90) K/uL [place] # (Auto) 0.80 (0.00-0.90) K/UL Eos # (Auto) 0.03 (0.00-0.50) K/uL Baso # (Auto) 0.03 (0.00-0.30) K/uL Abs Immat Gran (auto) 0.02 (0.00-0.30) K/uL Imm/Tot Granulo (auto) 0.2 % VBG pH 7.413 (7.32-7.43) VBG pCO2 48 (40-50) mmHG VBG pO2 30.5 (25-47) mmHG VBG HCO3 31 H (21-28) mmol/L Sodium 144 (135-149) mmol/L Potassium 3.7 (3.6-5.1) mmol/L Chloride 107 (96-114) mmol/L Carbon Dioxide 30 (20-32) mmol/L Anion Gap 7 (7-15) mEq/L BUN 17 (7-30) mg/dL Creatinine 0.7 (0.5-1.5) mg/dL Estimated Creat Clear 63.89 Estimated GFR 89 ml/min Glucose 119 H (60-115) mg/dL Lactate 0.8 (0.5-1.9) mmol/L Calcium 8.9 (8.4-10.6) mg/dL Total Bilirubin 1.3 (0.1-1.5) mg/dL AST 27 (12-35) U/L ALT 24 (4-50) U/L Alkaline Phosphatase 80 (40-150) U/L Troponin I 0.03 0.04 (0.01-0.04) ng/mL NT-Pro-B Natriuret Pep 2450 pg/mL Total Protein 6.2 (6.0-8.3) g/dL Albumin 4.0 (3.3-5.0) g/dL Lipase 92 (23-300) U/L Urine Color Yellow (Yellow) Urine Appearance Cloudy A (Clear) Urine pH 5.5 (5.0-8.5) Ur Specific [place] 1.015 (1.000-1.030) Urine Protein 2+ A (Negative) Urine Glucose (UA) Negative (Negative) Urine Ketones Trace A (Negative) Urine Blood 3+ A (Negative) Urine Nitrite Negative (Negative) Urine Bilirubin Negative (Negative) Urine Urobilinogen 0.2 (0.2-1.0) Ur Leukocyte Esterase Negative (Negative) Urine RBC 50-100 A (0-2) Urine WBC 5-10 A (0-5) Ur Squamous Epith Cells None (None-Few) Urine Bacteria None (None) SARS-CoV-2 (PCR) Negative SARS-CoV-2 (Negative) Influenza Type A (PCR) Negative PCR FLU A (Negative) Influenza Type B (PCR) Negative PCR FLU B (Negative) RSV (PCR) Negative PCR RSV (Negative) Imaging Data Chest x-ray: Attestation: I have reviewed the pertinent imaging results. Radiologist's impression: IMPRESSION: Trace bilateral pleural effusion. Mild diffuse prominence of the pulmonary interstitial markings such as could be seen with edema or infection. CT scan - head: Attestation: I have reviewed the pertinent imaging results. Radiologist's impression: IMPRESSION: No acute findings. CT scan - abdomen: Attestation: I have reviewed the pertinent imaging results. Radiologist's impression: IMPRESSION: 1. Small bilateral pleural effusions. 2. Moderate hepatic steatosis. 3. Cholelithiasis without CT evidence of acute cholecystitis. 4. No hydronephrosis. Nonobstructing bilateral renal calculi measuring up to 1.1 centimeter on the right and 2.0 centimeter on the left are again seen; these are within the renal pelvis. 5. Moderate stool burden. 6. Moderately enlarged prostate. ECG Data Attestation: I personally reviewed and interpreted this ECG as follows: Interpretation: Sinus bradycardia Rate: 54 SC: 194 QRS axis: He LVH. Left axis deviation. No pathologic Q-waves. R, S, R prime in V1. Nonspecific. ST segment/T wave: No ST segment elevation or depression QTc: 485 Discharge Plan Discharge Clinical Impression: Altered mental status, Acute UTI Patient Disposition: Home, Self-Care Condition: Stable Instructions: Urinary Tract Infection in Men (DC), Altered Mental Status (ED) Additional Instructions: As we discussed, you have signs of a bladder infection on your urine sample today. Your received your 1st dose of antibiotic here in the ER. Take your next dose of antibiotics at home tomorrow morning. Someone from the hospital will call you in 1 or 2 days if we need to change your antibiotics. If you get worse-for instance, if you have fever, worsening weakness, more confusion, falls, please come back to the ER right away. You do have signs of fluid building up in your ankles. I am concerned that you may have a condition called congestive heart failure (CHF). Sometimes people with CHF require water pills and diuretics. Please recheck with your regular doctor by next Wednesday for re-evaluation, repeat labs, and repeat x-ray. If you have any chest pain or trouble breathing, come back to the ER right away Prescriptions: New cefdinir 300 mg capsule 300 mg PO BID 7 Days Qty: 14 0RF No Action donepezil 10 mg tablet 10 mg PO DAILY metoprolol tartrate 25 mg tablet 25 mg PO DAILY lisinopril 10 mg tablet 10 mg PO DAILY atorvastatin 40 mg tablet 40 mg PO DAILY timolol maleate 0.5 % drops 1 drp ophthalmic (eye) Q12H latanoprost 0.005 % drops 1 drp ophthalmic (eye) HS potassium gluconate 500 mg (83 mg) tablet 500 mg PO QDAY multivitamin [Multiple Vitamins] Tablet 1 tab PO QAM ergocalciferol (vitamin D2) 50 mcg (2,000 unit) capsule 50 mcg PO QDAY mecobalamin (vitamin B12) 500 mcg tablet,chewable PO aspirin 81 mg capsule 81 mg PO QDAY gabapentin 300 mg capsule 600 mg PO Q8H Patient Comments: TAKE 2 CAPSULES (600 MG) BY MOUTH THREE TIMES DAILY. Follow Up/Referrals: Marc Shields MD [Primary Care Provider] - Stand Alone Forms: [employer] [facility] Info Instructions
--- OUTSIDE RECORDS SUMMARY | 2024-10-04 11:29 | XMS_ITS | Clinical Summary ---
Author Organization [employer] [facility] [employer] Address [place], [place] [address] Care Team Providers Care Aerobics Teacher Name Role Phone Elena Orellana AuD Unavailable [phone] Elena Orellana AuD Unavailable [phone] Chuck Ivan MD Unavailable [phone] Don Trujillo MD Unavailable Marc Shields MD Primary Care Provider [phone] Allergies Active Allergy Reactions Criticality Noted Date Comments Cyclobenzaprine Nausea And Vomiting 07/10/2011 Methocarbamol Nausea And Vomiting 07/10/2011 Oxycodone Nausea Only 10/07/2018 Penicillins Anaphylaxis 06/25/2006 Medications Walker with Wheels For home use, 99 months, diagnosis: (724.02) Lumbar spinal stenosis, (721.3) Lumbar facet arthropathy 1 Device 0 07/27/20 13 Active latanoprost (XALATAN) 0.005 % ophthalmic solutionIndication s:Other glaucoma of both eyes Place 1 Drop into left eye at bedtime. 2.5 mL 0 09/10/19 16 Active cyanocobalamin (VITAMIN B12) 500 mcg tablet Take by mouth once daily. 0 12/09/19 16 Active timolol maleate (TIMOPTIC) 0.5 % ophthalmic solution 11 02/16/20 17 Active BiPapIndications:O SA (obstructive sleep apnea) ASV machine for home use at pressure: 5cm/H2O PS 3-15 cm/H2O BR-auto , Heated humidifier x 1, Humidifier chamber x 1, 1 Device 11 10/06/19 19 Active sennosides (SENNA) 8.6 mg tabletIndications: Chronic constipation Take 2 tablets by mouth 2 times daily if needed for Constipation. 0 01/03/20 19 Active vitamin E acetate (VITAMIN E ORAL) Take 180 mg by mouth 2 times daily. Active potassium gluconate 595 mg (99 mg) TbER Take 99 mg by mouth 2 times daily. Active MULTIVITAMIN ORAL Take 1 Dose by mouth 2 times daily. Active BiPapIndications:O SA (obstructive sleep apnea) ASV/BIPAP machine for home use at pressure: epap 5 PS 3-15, full face mask x1/3month with a full face cushion x1/mo Heated humidifier x 1/5 year, Humidifier chamber x 1/6mo, Heated tubing x 1/3mo, Headgear x 1/6mo,Chin strap x 1/6 months, Filters:Disposabl e x 2pk/1mo & Reusable x 1pk/6mo [id number] Usage- daily 1 Device 05/23/20 20 Active aspirin (ECOTRIN) 81 mg enteric coated tabletIndications: Coronary artery disease involving [place] coronary artery of [place] heart without angina pectoris Take 1 Tablet (81 mg) by mouth once daily with a meal. 0 07/29/20 22 Active acetaminophen (TYLENOL EXTRA STRGTH) 500 mg tablet Take 1,000 mg by mouth three times daily. Max acetaminophen dose: 4000mg in 24 hrs. Active donepeziL (ARICEPT) 10 mg tabletIndications: Late onset Alzheimer's disease without behavioral disturbance (HC) Take 1 Tablet (10 mg) by mouth at bedtime. 90 Tablet 3 07/23/20 23 Active metoprolol tartrate (LOPRESSOR) 25 mg tabletIndications: Coronary artery disease involving [place] coronary artery of [place] heart without angina pectoris,Essential hypertension TAKE 1 TABLET (25 MG) BY MOUTH ONCE DAILY IN THE EVENING. 90 Tablet 07/20/20 24 Active gabapentin (NEURONTIN) 300 mg capsuleIndications :Neck pain, chronic,Polyneurop athy,Spinal stenosis of lumbar region with neurogenic claudication TAKE 2 CAPSULES (600 MG) BY MOUTH THREE TIMES DAILY. 540 Capsule 07/20/20 24 Active atorvastatin (LIPITOR) 40 mg tabletIndications: Coronary artery disease involving [place] coronary artery of [place] heart without angina pectoris,Mixed hyperlipidemia TAKE 1 TABLET (40 MG) BY MOUTH ONCE DAILY. 90 Tablet 07/20/20 24 Active lisinopriL (PRINIVIL; ZESTRIL) 10 mg tabletIndications: Essential hypertension TAKE 1 TABLET (10 MG) BY MOUTH ONCE DAILY. 90 Tablet 07/20/20 24 Active Active Problems Problem Noted Date Diagnosed Date Late onset Alzheimer's disea se without behavioral disturbance 08/27/2020 Overview (07/23/2023): Refuses MMSE testing. Pulse is in 40s as of 07/23/2023. They will monitor his pulse and if it gets below 40 or he gets symptoms, they will let me know. Neck pain, chronic 03/12/2020 Coronary artery disease invo lving [place] coronary artery of [place] heart without angina pectoris 04/26/2019 Overview (08/31/2019): LAD/D stents 1997; angio [address] angio 06/25/06; stents patent; prob not significant in stent restenosis Nl EF Neg. myoview stress test 06/28/06 ERLIN x1 to LAD 08/30/2019 Foraminal stenosis of cervical region 11/25/2018 Polyneuropathy 11/22/2018 Primary central sleep apnea 10/06/2018 Gallbladder calculus without cholecystitis 12/09 Nephrolithiasis 12/10/2015 Overview (12/10/2015): Bilateral , multiple calculi. Diverticulosis of large [...] of spinal canal 04/11/2012 Insomnia, unspecified 07/30/2010 Overview (07/10/2011): Improved sleep after omitting wine with dinner. 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, bilateral 01/25/2009 Special screening for malignant neoplasm of pros wallace 02/01/2008 Adjustment disorder with mixed anxiety and depre ssed mood 07/12/2007 BILE ACID REFLUX 07/08/2007 ROUTINE GENERAL MEDICAL EXAM 04/21/2007 Overview (04/21/2007): colonoscopy 03/02/2005 Recheck 10 yrs Mixed hyperlipidemia 01/04/2007 Peyronie's disease 11/04/2006 Renal colic 11/04/2006 Degeneration of cervical intervertebral disc History of coronary artery disease Overview (06/28/2006): LAD/D stents 1997; angio [address] angio 06/25/06; stents patent; prob not significant in stent restenosis Nl EF Neg. myoview stress test 06/28/06 Resolved Problems Problem Noted Date Diagnosed Date Resolved Date History of coronary artery disease 04/26/2019 04/26/2019 Unspecified glaucoma 08/06/2010 016 Chest pain, unspecified 07/04/200712/2009 Overview (07/04/2007): -c/o exertional chest pain Unspecified sleep apnea 11/04/200609/24 Unspecified glaucoma 11/04/2006 016 Chest pain, unspecified 06/25/200601/2006 Esophageal reflux 08/06/2010 Encounters Date Type Department Care Team Description 09/12/2024 Orders Only [facility] Scanner 1 scan: (1-Ord) TAREEN DERMATOLOGY, MOHS; LEFT CENTRAL ZYGOMA, 09/12/2024 08/11/2024 Orders Only [facility] Scanner 1 scan: (1-Ord) TAREEN DERMATOLOGY, SHAVE BIOPSY, 08/11/2024 07/17/2024 Refill [facility] [address] [place] [address] Marc Shields MD Refill Request (Metoprolol Tartrate, Gabapentin, Atorvastatin, Lisinopril) from Last 3 Months Immunizations Name Administration Dates Next Due AMB Influenza, IIV3 (Age >=3 years)(Flu Clinic Only) 05/26/2013,05/25/2012,06/11/2010,2007 COVID-19 vaccine (Moderna 50mcg/0.5mL) 12YO+ BIVALENT PF, MDV 05/19/2022 COVID-19 vaccine (Pfizer-Bio NTech 30mcg/0.3mL) PF, MDV 06/05/2021,10/19/2020,09/28/2020 Influenza A [...] 1 07/23/2023 Social Connections Answer Date Recorded Do you often feel lonely or isolated from those around you? 0 07/23/2023 Financial Resource Strain Answer Date R ecorded Difficulty of Paying Living Expenses 3 07/23/2023 Difficulty of Paying Living Expenses Not on file 07/23/2023 Food Insecurity Answer Date Recorded Do you worry your food will run out before you are able to buy more? 1 07/23/2023 Transportation Needs Answer Date Record ed Does lack of transportation keep you from medica l appointments? 1 07/23/2023 Does lack of transportation keep you from work, meetings or getting things that you need? 1 07/23/2023 Housing Stability Answer Date Recorded What is your housing situation today? 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 Gender Identity Not on file Sexual Orientation Not on file Occupation Industry Job Start Date Job End Date Retired [employer] Not on file Not on file N ot on file Obstetrics History Last Filed Vital Signs Vital Sign Reading Time Taken Comments Blood Pressure 103/63 07/23/2023 9:13 AM BEHAVIORAL HEALTH THERAPIST Pulse 46 07/23/2023 9:13 AM BEHAVIORAL HEALTH THERAPIST manual check Temperature 36.4 C (97.6 F) 05/26/2023 9:17 AM CDT Respiratory Rate 16 06/25/2020 10:2 0 AM BEHAVIORAL HEALTH THERAPIST Oxygen Saturation 100% 05/26/2023 9:1 7 AM CDT Inhaled Oxygen Concentration - - Weight 89.7 kg (197 lb 12.8 oz) 07/23/2023 9:13 AM BEHAVIORAL HEALTH THERAPIST Height 190.5 cm (6' 3) 07/23/2023 9:13 AM BEHAVIORAL HEALTH THERAPIST Body Mass Index 24.72 07/23/2023 9:13 AM BEHAVIORAL HEALTH THERAPIST Plan of Treatment Health Maintenance Due Date Last Done Comments RSV vaccine for adults or (1 - 1-dose 75+ series) 2012 Tetanus booster 07/29/2022 07/29/2012, 09/23, 10/05/2006 COVID-19 vaccine series ( season) 2024 05/19/2022, 12/10/2021, 06/05/2021, Additional history exists Influenza for age 65+ 04/23/2024 05/19/2023 , 06/08/2022, 05/09/2021, Additional history exists BMI (ht and wt on same day) for age 18+ 07/23/2024 07/23/2023, 12/02/2021, 05/13/2021, Additional history exists Medicare Wellness for age 65+ 07/23/2024, 06/26/2020, 09/10/2015, Additional history exists Tdap Completed 07/29/2012 Pneumococcal series for age 50+ Completed 6, 12/22/2003 Zoster (shingles) series for age 50+ Completed 07/06/2018, 02/16/2018, 01/04/2007 Procedures Procedure Name Priority Date/Time Associated Diagnosis Comments SCAN-OPERATIVE/PROC EDURE REPORT 09/12/2024 12:00 AM BEHAVIORAL HEALTH THERAPIST SCAN-OPERATIVE/PROC EDURE REPORT 08/11/2024 12:00 AM BEHAVIORAL HEALTH THERAPIST from Last 3 Months Results * SCAN-OPERATIVE/PROCEDURE REPORT (09/12/2024 12:00 AM BEHAVIORAL HEALTH THERAPIST) us Scanner OTHER Final Result * SCAN-OPERATIVE/PROCEDURE REPORT (08/11/2024 12:00 AM BEHAVIORAL HEALTH THERAPIST) us Scanner OTHER Final Result from Last 3 Months Insurance MEDICARE PART B HB ONLY MEDICARE PART A HB ONLY [place] BLUE HB ONLY [place] BLUE MR PB ONLY Advance Directives Documents on File Type Date Recorded Patient Combination Saw Operator Expl anation Power of Beef Boner 10/21/2006 Healthcare Directive 10/21/2006 * Full Code [...] 2:32 PM 06/28/2006 6:27 PM Care Teams Aerobics Teacher Relationship Specialty Start Date End Date Marc Shields MD [address] [place] [address] PCP - General Family Practice 06/11/22 Elena Orellana AuD Audiology 10/23/05 Elena Orellana AuD Audiology 07/29/12 Chuck Ivan MD Surgery - Otolaryngology 07/29/12 Don Trujillo MD [address] [place] [address] Sports Medicine 07/29/12
[2024-10-04 11:31] LABS: Lactate* 0.8 mmol/L (0.5-1.9)
[2024-10-04 11:35] LABS: Basophils Absolute Auto 0.03 K/uL (0.00-0.30); Basophils Percent Auto 0.3 % (0.0-3.0); Eosinophils Absolute Auto 0.03 K/uL (0.00-0.50); Eosinophils Percent Auto 0.3 % (0.0-7.0); Hematocrit 41.3 % (37.0-53.0); Hemoglobin* 13.7 gm/dL (13.5-17.5); Immature Granulocytes Abs Auto 0.02 K/uL (0.00-0.30); Immature Granulocytes Pct Auto 0.2 %; Lymphocytes Percent Auto 13.4 % (20-44); Mean Corpuscular HGB Conc 33 gm/dL (32-36); Mean Corpuscular Hemoglobin 34 pg (26-34); Mean Corpuscular Volume 102 fL (80-100); Neutrophils Percent Auto 77.8 % (42.0-72.0); Platelet Count* 150 K/uL (140-440); RDW Coefficient of Variation % 12.8 % (11.5-15.5); Red Blood Count 4.05 m/uL (4.30-5.90); White Blood Count* 9.69 K/uL (4.50-11.00)
[2024-10-04] MEDS: ACETAMINOPHEN 500 MG TABLET 1000 MG PO (11:35)
[2024-10-04] MEDS: 0.9 % SODIUM CHLORIDE 1000 ml 1,000 ML IV (11:35)
[2024-10-04 11:36] LABS: Slide Review Reflex No
[2024-10-04 11:48] LABS: Chloride* 107 mmol/L (96-114); Potassium* 3.7 mmol/L (3.6-5.1); Sodium* 144 mmol/L (135-149)
[2024-10-04 11:50] LABS: Creatinine* 0.7 mg/dL (0.5-1.5); Est. Creatinine Clearance* 63.89; Estimated Glomerular Filt Rate 89 ml/min
[2024-10-04 11:51] LABS: Alanine Aminotransferase* 24 U/L (4-50); Alkaline Phosphatase* 80 U/L (40-150); Anion Gap 7 mEq/L (7-15); Aspartate Amino Transferase* 27 U/L (12-35); Bilirubin Total* 1.3 mg/dL (0.1-1.5); Blood Urea Nitrogen* 17 mg/dL (7-30); Carbon Dioxide* 30 mmol/L (20-32); Glucose* 119 mg/dL (60-115); Lipase* 92 U/L (23-300); Total Protein* 6.2 g/dL (6.0-8.3)
[2024-10-04 11:52] LABS: Calcium* 8.9 mg/dL (8.4-10.6)
[2024-10-04 12:03] LABS: Troponin I* 0.03 ng/mL (0.01-0.04)
[2024-10-04 12:10] LABS: NT Pro B Type NatriureticPept* 2450 pg/mL; PCR FLU A Negative PCR FLU A (Negative); PCR FLU B Negative PCR FLU B (Negative); PCR RSV Negative PCR RSV (Negative); SARS PCR* Negative SARS-CoV-2 (Negative)
[2024-10-04 14:03] LABS: Troponin I* 0.04 ng/mL (0.01-0.04)
[2024-10-04 14:06] LABS: Appearance Urine Cloudy (Clear); Bilirubin Urine Negative (Negative); Blood Urine 3+ (Negative); Color Urine Yellow (Yellow); Glucose Urine Negative (Negative); Ketones Urine Trace (Negative); Leukocyte Esterase Urine Negative (Negative); Nitrite Urine Negative (Negative); Protein Urine 2+ (Negative); Specific Gravity Urine 1.015 (1.000-1.030); Urobilinogen Urine 0.2 (0.2-1.0); pH Urine 5.5 (5.0-8.5)
[2024-10-04 14:25] LABS: RBC Urine 50-100 (0-2)
[2024-10-04] MEDS: cefTRIAXone 1 GM in 0.9 % SODIUM CHLORIDE Mini-bag 100 ML IVPB (15:05)
[2024-10-04 15:45] LABS: HCO3 VBG 31 mmol/L (21-28); PCO2 VBG 48 mmHG (40-50); PO2 VBG 30.5 mmHG (25-47); pH VBG 7.413 (7.32-7.43)
== END 2024-10-04 16:58 | disposition home or self-care (01) ==
PROVIDERS: Emergency Provider Emergency Medicine; PCP Family Medicine
DX: R41.82 Altered mental status, unspecified (principal); N39.0 Urinary tract infection, site not specified
CPT/HCPCS: 36415; 70450; 71046; 74177; 80053; 81001; 82803; 83605; 83690; 83880; 84484; 85025; 87040; 87086; 87631; 93005; 96365; 99284; 99285; A9270; J0696; J7030; Q9967

== ENCOUNTER 2025-01-28 15:18 | Outpatient (CLI) | payer MEDICARE, BC, SELFPAY | END 2025-01-28 15:19 | disposition home or self-care (01) | PROVIDERS: PCP Family Medicine; Visit Provider Internal Medicine | DX: R07.89 Other chest pain (principal); F03.90 Unspecified dementia, unspecified severity, without behavioral disturbance, psychotic disturbance, mood disturbance, and anxiety | CPT/HCPCS: A0425; A0427 ==

== ENCOUNTER 2025-01-28 16:14 | Emergency (ER) | payer MEDICARE, BC, SELFPAY ==
--- OUTSIDE RECORDS SUMMARY | 2025-01-28 16:15 | XMS_ITS | Clinical Summary ---
Author Organization [email or web address] [facility] [employer] [facility] Address [address] [place] [address] Care Team Providers Care Admissions Assistant Name Role Phone Elena Orellana AuD Unavailable [phone] Elena Orellana AuD Unavailable [phone] Chuck Ivan MD Unavailable Don Trujillo MD Unavailable Huang Cool MD Primary Care Provider [phone] Allergies Active Allergy Reactions Criticality Noted Date Comments Cyclobenzaprine Nausea And Vomiting 07/10/2011 Methocarbamol Nausea And Vomiting 07/10/2011 Oxycodone Nausea Only 10/07/2018 Penicillins Anaphylaxis 06/25/2006 Medications Walker with Wheels For home use, 99 months, diagnosis: (724.02) Lumbar spinal stenosis, (721.3) Lumbar facet arthropathy 1 Device 0 07/27/20 13 Active latanoprost (XALATAN) 0.005 % ophthalmic solutionIndicati ons:Other glaucoma of both eyes Place 1 Drop into left eye at bedtime. 2.5 mL 0 09/10/19 16 Active cyanocobalamin (VITAMIN B12) 500 mcg tablet Take by mouth once daily. 0 12/09/19 16 Active timolol maleate (TIMOPTIC) 0.5 % ophthalmic solution 11 02/16/20 17 Active vitamin E acetate (VITAMIN E ORAL) Take 180 mg by mouth 2 times daily. Active potassium gluconate 595 mg (99 mg) TbER Take 99 mg by mouth 2 times daily. Active MULTIVITAMIN ORAL Take 1 Dose by mouth 2 times daily. Active BiPapIndications :ERENDIRA (obstructive sleep apnea) ASV/BIPAP machine for home [...] Active aspirin (ECOTRIN) 81 mg enteric coated tabletIndication s:Coronary artery disease involving [place] coronary artery of [place] heart without angina pectoris Take 1 Tablet (81 mg) by mouth once daily with a meal. 0 07/29/20 22 Active acetaminophen (TYLENOL EXTRA STRGTH) 500 mg tablet Take 1,000 mg by mouth three times daily. Max acetaminophen dose: 4000mg in 24 hrs. Active donepeziL (ARICEPT) 10 mg tabletIndication s:Late onset Alzheimer's disease without behavioral disturbance (HC) Take 1 Tablet (10 mg) by mouth at bedtime. 90 Tablet 3 11/06/19 25 Active lisinopriL (PRINIVIL; ZESTRIL) 10 mg tabletIndication s:Essential hypertension Take 1 Tablet (10 mg) by mouth once daily. 90 Tablet 3 11/06/19 25 Active metoprolol tartrate (LOPRESSOR) 25 mg tabletIndication s:Essential hypertension,Cor onary artery disease involving [place] coronary artery of [place] heart without angina pectoris Take 1 Tablet (25 mg) by mouth once daily in the evening. 90 Tablet 3 11/06/19 25 Active Active Problems Problem Noted Date Diagnosed Date Late onset Alzheimer's disea se without behavioral disturbance 08/27/2020 Overview (07/23/2023): Refuses MMSE testing. Pulse is in 40s as of 07/23/2023. They will monitor his pulse and if it gets below 40 or he gets symptoms, they will let me know. Neck pain, chronic 03/12/2020 Coronary artery disease invo lving [place] coronary artery of [place] heart without angina pectoris 04/26/2019 Overview (08/31/2019): [...] 03/02/2005 Recheck 10 yrs Mixed hyperlipidemia 01/04/2007 Overview (11/05/2024): October 2024: Stopping Atorvastatin (Lipitor) due to age/ dementia state. Peyronie's disease 11/04/2006 Renal colic 11/04/2006 Degeneration [...] Encounters Date Type Department Care Team Description 11/02/2024 1:00 PM CDT Office Visit [facility] [address] [place] [address] Huang Cool MD Memory Loss (Having memory issues, BP Check) 11/02/2024 Travel from Last 3 Months Immunizations Immunization Administration Dates Next Due AMB Influenza, IIV3 (Age >=3 years)(Flu Clinic Only) 05/26/2013,05/25/2012,06/11/2010,06/13 COVID-19 VACCINE (MODERNA 25MCG/0.25ML) 6MO-11YO PFS 10/19/2023 COVID-19 VACCINE SPIKEVAX (M ODERNA 50MCG/0.5ML) 12YO+ PFS 05/08/2024 COVID-19 vaccine (Moderna 50 mcg/0.5mL) 12YO+ BIVALENT PF, MDV 05/19/2022 COVID-19 vaccine (Pfizer-Bio NTech 30mcg/0.3mL) PF, MDV 12/10/2021,06/05/2021,10/19/2020,09/28 Influenza A (H1N1), Inactiva kirill (Age >=3 Years) 08/27/2009 Influenza, High-dose Inactivated 024,06/02/2019,06/17/2018,05/20,05/26/2016,04/23/2016,05/20/2015 ,06/15/2014 Influenza, High-dose Quadriv alent Inactivated 05/19/2023,06/08/2022,05/09/2021,04/26 Influenza, IIV3 (Age >=3 years) 05/27/2011,06/28,06/23/2006 Influenza, Inactivated AIIV4 (Age 65+ Years) Preserv Free 05/09/2021 Influenza, Inactivated IIV3 (Age 65+ Years) Preserv Free 06/19/2024,04/25/2020,06/15/2019,05/23,05/23/2017 Pneumococcal Poly,23-Valent (Pneumovax) 12/22/2003 Pneumococcal conj 13-Valent (Prevnar 13) 09/10/2015 RSV, Recombinant ADJ Reconst ituted (Arexvy 120MCG/0.5mL) 09/15/2023 Td (Age >=7 Years) 10/05/2006 Td, Preservative Free (age >= 7 Years) 7 Tdap 07/29/2012 Tdap, Unspecified 11/02/2023 Zoster (Shingrix-RZV, recombinant) 07/06/2018, Zoster (Zostavax-ZVL, live) [...] or isolated from those around you? 0 10/16/2024 Financial Resource Strain Answer Date R ecorded Difficulty of Paying Living Expenses 3 10/16/2024 Difficulty of Paying Living Expenses Not on file 10/16/2024 Food Insecurity Answer Date Recorded Do you worry your food will run out before you are able to buy more? 1 10/16/2024 Transportation Needs Answer Date Record ed Does lack of transportation keep you from medica l appointments? 1 10/16/2024 Does lack of transportation keep you from work, meetings or getting things that you need? 1 10/16/2024 Housing Stability Answer Date Recorded What is your housing situation today? 1 10/16/2024 Utilities Answer Date Recorded Do you have trouble paying f or utilities (for example, heat, electricity, water, phone)? 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 Not on file N ot on file Obstetrics History Last Filed Vital Signs Vital Sign Reading Time Taken Comments Blood Pressure 117/67 11/02/2024 1:04 PM CDT Pulse 59 11/02/2024 1:04 PM CDT Temperature 36.4 C (97.6 F) 05/26/2023 9:17 AM CDT Respiratory Rate 16 06/25/2020 10:20 AM MILK ROUTE SUPERVISOR Oxygen Saturation 97% 11/02/2024 1:04 PM CDT Inhaled Oxygen Concentration - - Weight 87.5 kg (193 lb) 11/02/2024 1:04 PM CDT Height 190.5 cm (6' 3) 07/23/2023 9:13 AM MILK ROUTE SUPERVISOR Body Mass Index 24.12 07/23/2023 9:13 AM MILK ROUTE SUPERVISOR Plan of Treatment Health Maintenance Due Date Last Done Comments BMI (ht and wt on same day) for age 18+ 07/23/2024 07/23/2023, 12/02/2021, 05/13/2021, Additional history exists Medicare Wellness for age 65+ 07/23/2024 07/23/2023, 06/26/2020, 09/10/2015, Additional history exists COVID-19 vaccine series ( season) 2024 05/08/2024, 10/19/2023, 05/19/2022, Additional history exists Tetanus booster 11/01/2033 11/02/2023, 1202/2012, 10/05/2006, Additional history exists Pneumococcal series for age 50+ Completed 09/10/2015, 12/22/2003 Zoster (shingles) series for age 50+ Completed 07/06/2018, 02/16/2018, 01/04/2007 RSV vaccine for adults or Completed 09/15/2023 Tdap Completed 11/02/2023, 07/29/2012 Influenza Vaccine Completed 06/19/2024, , 05/09/2021, Additional history exists Hepatitis B series for 19+ Aged Out N o longer eligible based on patient's age to complete this topic Insurance MEDICARE PART B HB ONLY MEDICARE PART A HB ONLY [place] BLUE HB ONLY [place] BLUE MR PB ONLY Advance Directives Documents on File Type Date Recorded 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
[2025-01-28 16:16] VITALS: BP 159/69; PULSE 65; RESP 20; TEMP 36.6; O2SAT 99; BMI 25.4
--- NOTE | 2025-01-28 16:27 | ED.GENADULT ---
HPI - General Adult General Date Seen: 01/28/25 Chief complaint: Unspecified Complaint, Adult Stated complaint: Chest Pain Time Seen by Provider: 01/28/25 16:21 History of Present Illness HPI narrative: This is an 89-year-old gentleman with significant dementia which limits his ability to provide history. He also has a past medical history of glaucoma and possibly hypertension (on lisinopril and metoprolol. when he was here in the ER in September blood pressure was elevated at about 200/90s). He also has a history of coronary artery disease with stents about 4 years ago. He is on aspirin, metoprolol, statin, lisinopril) History from the paramedics who brought him in is that he has dementia but lives at home with his . He often will wander away from home. Apparently today he wanted away from home and his family could not find him for about an hour. [place]. He apparently walked down quite a steep hill into a ravine it was about 100 [address] into the [place]. Paramedics are surprised he made it that far because he normally walks with a cane and he will was so steep they really feel like he could have fallen. It does not look like he fell. Was confused and at baseline when they tried to bring him up. Because he was unsteady ultimately paramedics and fire fighters carried him back up the hill. While they were picking him up he seemed to have some chest pain. But it is unclear if he really did or not. They are not sure if he was just overwhelmed by the situation in all the strangers. since paramedics had the patient in the ambulance he has not had any complaints or any chest pain. Upon arrival here in the ER the patient does hold his hand over his left anterior chest and indicates he has pain there. Additional history from his and daughter are that he does have dementia. He is at his usual baseline mental status. It is unusual, but not unheard of, for him to wander off alone. His does not like him to do that. Today he had wanted off and his and daughter were searching for him. His daughter actually found him in the [place] at having traveled down a steep hill. She was not able to get him back up to the house out of the [place] on her own. She notes they had a little bit of dirt on the back of his sure that she suspects that he probably lost his balance and fell against a tree. She doubts that he fell down to the ground because he she does not think he would been strong enough to get himself off the ground, if he had actually fallen. His daughter was not able to coax him out of the [place] on her own so she called 911. First responders and paramedics arrived and they were able to carry the patient out of the [place]. While they were caring him out he did temporarily complain of back pain while he was on a backboard. Also during that process he had some anterior chest pain that came and went. says that he normally walks up and down his driveway a couple of times a day. His driveway is 1/3 of a mi long. She has not noted any other recent episodes of exertional chest pain or dyspnea or any other concerning symptoms. No swelling in his legs. No fever. No cough. No abdominal pain. Related Data Home Medications ?Medication ?Instructions ?Recorded ?Confirmed aspirin 81 mg capsule 81 mg PO QDAY 01/31/23 10/04/24 atorvastatin 40 mg tablet 40 mg PO DAILY 01/31/23 10/04/24 donepezil 10 mg tablet 10 mg PO DAILY 01/31/23 10/04/24 ergocalciferol (vitamin D2) 50 mcg 50 mcg PO QDAY 01/31/23 10/04/24 (2,000 unit) capsule latanoprost 0.005 % eye drops 1 drp ophthalmic (eye) HS 01/31/23 10/04/24 lisinopril 10 mg tablet 10 mg PO DAILY 01/31/23 10/04/24 mecobalamin (vitamin B12) 500 mcg mcg PO 01/31/23 10/04/24 chewable tablet metoprolol tartrate 25 mg tablet 25 mg PO DAILY 01/31/23 10/04/24 multivitamin (Multiple Vitamins 1 tab PO QAM 01/31/23 10/04/24 tablet) potassium gluconate 500 mg (83 mg) 500 mg PO QDAY 01/31/23 10/04/24 tablet timolol maleate 0.5 % eye drops 1 drp ophthalmic (eye) Q12H 01/31/23 10/04/24 gabapentin 300 mg capsule 600 mg PO Q8H 10/04/24 10/04/24 Previous Rx's ?Medication ?Instructions ?Recorded cefdinir 300 mg capsule 300 mg PO BID 7 days #14 caps 10/04/24 Allergies Allergy/AdvReac Type Severity Reaction Status Date / Time cyclobenzaprine Allergy Intermediate Severe Verified 10/04/24 12:26 nausea oxycodone Allergy Intermediate Severe Verified 10/04/24 12:26 nausea methocarbamol Allergy Mild Nausea Verified 10/04/24 12:26 Penicillins Allergy Anaphylaxis Verified 10/04/24 12:26 PFSH [facility] Social History Smoking Status: Never smoker Do you use any of these nicotine containing products: None Second hand tobacco smoke exposure: No How often do you have a drink containing alcohol: never How often do you have six or more drinks on one occasion: Never AUDIT-C Alcohol total score: 0 Non-prescribed substance use: denies use service: No Exam Narrative: Exam Narrative: Constitutional: Appears well-developed and well-nourished. Alert. Conversant. Non toxic. HENT: Head: Atraumatic. Nose: Nose normal. Mouth/Throat: Oral mucosa is clear and moist. no trismus. Pharynx normal. Tonsils symmetric. No tonsillar enlargement, erythema, or exudate. Eyes: Conjunctivae normal. EOM normal. Pupils equal, round, and reactive to light. No scleral icterus. Neck: Normal range of motion. Neck supple. No tracheal deviation present. Cardiovascular: Normal rate, regular rhythm. No gallop. No friction rub. No murmur heard. Symmetric radial and PT artery pulses Pulmonary/Chest: Effort normal. No stridor. No respiratory distress. No wheezes. No rales. No rhonchi . He does have left anterolateral chest wall tenderness. No bruising. No rash. Abdominal: Soft. Bowel sounds normal. No distension. No mass. No tenderness. No rebound. No guarding. Musculoskeletal: RUE: Normal range of motion. No tenderness. No deformity LUE: Lifting his left arm does cause a little bit of left chest pain. This limits his forward flexion of his shoulder. No tenderness. No deformity RLE: Normal range of motion. No edema. No tenderness. No deformity LLE: Normal range of motion. No edema. No tenderness. No deformity Neurological: Alert and oriented to person, but not place or date. This is his baseline mental status. Poor historian but cooperative. Normal strength. CN II-VII intact. No sensory deficit. GCS eye subscore is 4. GCS verbal subscore is 5. GCS motor subscore is 6. Normal coordination Skin: Skin is warm and dry. No rash noted. No pallor. Normal capillary refill. Psychiatric: Normal mood. At time seems to be anxious and and once endorses that he feels afraid. Very cooperative with his and daughter. His family are very attentive. Const: Vital Signs, click to edit/add: Vital Signs - 24 hr 01/28/25 16:16 01/28/25 18:12 Temperature 97.9 F 97.6 F Pulse Rate [Pulse Oximeter] 65 81 Respiratory Rate 20 18 Blood Pressure [Ri ght Upper Arm] 159/69 H 161/87 H Pulse Oximetry 99 97 Oxygen Delivery Me thod Room Air Room Air Course Vital Signs Vital signs: Initial Vital Signs Temperature 97.9 F 01/28/25 16:16 Temperature Source Temporal Artery Scan 01/28/25 16:16 Pulse Rate 65 01/28/25 16:16 Pulse Rhythm Regular 01/28/25 16:16 Respiratory Rate 20 01/28/25 16:16 Blood Pressure 159/69 H 01/28/25 16:16 Blood Pressure Mean 99 01/28/25 16:16 Blood Pressure Position Sitting 01/28/25 16:16 Pulse Oximetry 99 01/28/25 16:16 Oxygen Delivery Method Room Air 01/28/25 16:16 Vital Signs Temperature 97.9 F 01/28/25 16:16 Pulse Rate 65 01/28/25 16:16 Respiratory Rate 20 01/28/25 16:16 Blood Pressure 159/69 H 01/28/25 16:16 Pulse Oximetry 99 01/28/25 16:16 Oxygen Delivery Method Room Air 01/28/25 16:16 Temperature 97.6 F 01/28/25 18:12 Pulse Rate 81 01/28/25 18:12 Respiratory Rate 18 01/28/25 18:12 Blood Pressure 161/87 H 01/28/25 18:12 Pulse Oximetry 97 01/28/25 18:12 Oxygen Delivery Method Room Air 01/28/25 18:12 Medications Administered Medications: Discontinued Medications Generic Name Dose Route Start Last Admin Trade Name Freq PRN Reason Stop Dose Admin Aspirin 162 mg 01/29/25 09:00 01/28/25 18:21 Aspirin 81 Mg Tab.Chew PO 162 mg DAILY LEXY Administration Fentanyl 25 mcg 01/28/25 16:49 01/28/25 17:36 Fentanyl 100 Mcg/2 Ml Inj IVP 01/28/25 16:50 25 mcg ONCE ONE Administration Medical Decision Making MDM Narrative Medical decision making narrative: 89-year-old gentleman with known dementia who is at his baseline mental status is brought to the ER today by EMS because he wandered away from home and went into the [place], down a steep hill and then could not get back out of the [facility]. In terms of his mental status his and daughter feel that he is at his baseline. He does not have any signs of head trauma and has no known falls. At this point we have low suspicion for intracranial bleed or other infection or metabolic process causing an acute delirium superimposed on his chronic dementia. Initially the call to 911 was simply to get help getting the patient out of the [facility] with a plan for him to stay at home with his and daughter. However during the extraction process he also complained of chest pain. He has a known history of coronary disease with stents placed about 4 years ago. Chest pain seemed to come and go during the instruction process and it is not clear if it is musculoskeletal, cardiac, or anxiety. He did have another episode of chest pain when he arrived here in the ER and on my exam he complained of chest pain and tenderness with palpation of the left anterior chest wall at the bottom edge of the pack. Discussed the differential for the chest pain with the patient's and daughter. They would like to pursue workup to see if his any serious cause such as VA, PE, rib fracture. We hope that is musculoskeletal. Based on his dementia and age, they would generally trend toward supportive care rather than aggressive interventions but they would like workup to find out what is wrong for they make any decisions about plan of care. We did obtain EKG which is nonischemic and initial and 2 hour delta troponin are normal. At this point no evidence for active STEMI or NSTEMI. We do consider the possibility for possible unstable angina but since the pain seems to be reproducible and trigger 4 by palpation it seems more likely to be musculoskeletal. In discussion with the patient's family, since he has dementia as a really would not want to be hospitalized and oblique it is appropriate to push for hospitalization or stress testing at this point. Discussed the potential for angina and his daughter and will monitor for that. If he has worsening symptoms or if they want further workup they are encouraged come back to the ER right away. Otherwise they will manage supportively for musculoskeletal pain. There is note of a pulmonary nodule on his chest CT. Discussed in detail with his and his daughter. We discussed the low likelihood but non 0 likelihood of cancer. We discussed the recommendation for 6 month follow-up CT. They endorse that they really would not want him to have any treatment for cancer if it were present and therefore there really is no reason for follow-up imaging. I think it is reasonable for them to avoid the six-month follow-up CT. However I did provide the radiologist recommendations and writing so that if they change their mind they can follow-up for surveillance scan. In terms of the patient's dementia they have been considering possible placement in a memory care. However they feel that today's episode really just reflexes baseline dementia and an episode where he got out of there site. They are comfortable and preferred to keep him at home rather than have him admitted for placement at this time. I think that is reasonable. At this point he seems to be well groomed, well cared for. I do not have any suspicion for elder neglect. Lab Data Labs: Lab Results 01/28/25 01/28/25 01/28/25 Range/Units 16:50 17:01 19:05 WBC 7.40 (4.50-11.00) K/uL RBC 4.12 L (4.30-5.90) m/uL Hgb 14.0 (13.5-17.5) gm/dL Hct 41.5 (37.0-53.0) % MCV 101 H (80-100) fL MCH 34 (26-34) pg MCHC 34 (32-36) gm/dL RDW Coeff of Catrachita 12.7 (11.5-15.5) % Plt Count 190 (140-440) K/uL Neut % (Auto) 79.0 H (42.0-72.0) % Lymph % (Auto) 11.9 L (20-44) % Castro % (Auto) 8.0 (0.0-11.0) % Eos % (Auto) 0.5 (0.0-7.0) % Baso % (Auto) 0.5 (0.0-3.0) % Neut # (Auto) 5.80 (1.7-7.0) K/uL Lymph # (Auto) 0.90 (0.90-2.90) K/uL Castro # (Auto) 0.60 (0.00-0.90) K/UL Eos # (Auto) 0.04 (0.00-0.50) K/uL Baso # (Auto) 0.04 (0.00-0.30) K/uL Abs Immat Gran (auto) 0.01 (0.00-0.30) K/uL Imm/Tot Granulo (auto) 0.1 % Sodium 141 (135-149) mmol/L Potassium 3.7 (3.6-5.1) mmol/L Chloride 108 (96-114) mmol/L Carbon Dioxide 30 (20-32) mmol/L Anion Gap 3 L (7-15) mEq/L BUN 19 (7-30) mg/dL Creatinine 0.8 (0.5-1.5) mg/dL Estimated Creat Clear 57.12 Estimated GFR 86 ml/min Glucose 129 H (60-115) mg/dL Calcium 9.2 (8.4-10.6) mg/dL POC Troponin I 0.01 0.02 (0.01-0.04) ng/ml Imaging Data XR L shoulder: Attestation: I have reviewed the pertinent imaging results. Radiologist's impression: FINDINGS: No acute fracture or dislocation. Degenerative changes of glenohumeral joint. Advanced degenerative changes at the AC joint. There is narrowing of the acromiohumeral interval which may be secondary to rotator cuff tendinopathy. No fractures of the visualized lower ribs. CT scan - chest: Attestation: I have reviewed the pertinent imaging results. Radiologist's impression: IMPRESSION: No pulmonary embolism as questioned. No focal consolidations. Incidental focal 10 millimeter ground-glass nodule in the right middle lobe, possibly infectious/inflammatory in etiology. Low-grade malignancy not excluded. Recommend follow-up CT in 6 months. ECG Data Attestation: I personally reviewed and interpreted this ECG as follows: Interpretation: Normal sinus rhythm Rate: 65 LA: 198 QRS axis: RSR prime pattern in V1 suggests right ventricular conduction delay. Not a clear right bundle branch block pattern. QRS duration is 104 ST segment/T wave: No ST segment elevation or depression. QTc: 447 No definite change compared to 10/04/2024 Discharge Plan Discharge Clinical Impression: Incidental pulmonary nodule, Chest pain, Dementia Patient Disposition: Home w/ Parent or Adult Condition: Stable Instructions: Chest Pain (DC), Dementia (ED), Pulmonary Nodules (ED) Additional Instructions: As we discussed, so further workup for his heart looks good. No sign of heart attack. Please keep an eye on his symptoms and chest pain if he has any worsening pain or trouble breathing or if you have any concerns, he can bring him back to the ER right away to be rechecked. As we discussed, his CT scan does not show any sign of broken ribs or long injury or any serious injuries from this incident. The CT scan does show a small nodule in his lung. It is 10 mm across. As we discussed we do not know what this nodule is. It is most likely a bit of scar tissue or healing of his lung from a recent infection. However, we cannot completely rule out the possibility of lung cancer. If you want to monitor this for signs of growth or cancer, you could follow-up with his doctor to arrange a repeat CT scan of his lungs in 6 months. However, you are not obligated to have a follow-up CT scan Thank you for coming to the ER tonight. Remember you can come back any time if you have problems. Good luck! Prescriptions: No Action donepezil 10 mg tablet 10 mg PO DAILY metoprolol tartrate 25 mg tablet 25 mg PO DAILY lisinopril 10 mg tablet 10 mg PO DAILY atorvastatin 40 mg tablet 40 mg PO DAILY timolol maleate 0.5 % drops 1 drp ophthalmic (eye) Q12H latanoprost 0.005 % drops 1 drp ophthalmic (eye) HS potassium gluconate 500 mg (83 mg) tablet 500 mg PO QDAY multivitamin [Multiple Vitamins] Tablet 1 tab PO QAM ergocalciferol (vitamin D2) 50 mcg (2,000 unit) capsule 50 mcg PO QDAY mecobalamin (vitamin B12) 500 mcg tablet,chewable PO aspirin 81 mg capsule 81 mg PO QDAY gabapentin 300 mg capsule 600 mg PO Q8H Patient Comments: TAKE 2 CAPSULES (600 MG) BY MOUTH THREE TIMES DAILY. cefdinir 300 mg capsule 300 mg PO BID 7 Days Qty: 14 0RF Follow Up/Referrals: Marc Shields MD [Primary Care Provider, Family Practice] Stand Alone Forms: [employer] Info Instructions
--- NOTE | 2025-01-28 16:49 | CRLHL7_ITS ---
For Patients: As a result of the Century Cures Act, medical imaging exams and procedure reports are released immediately into your electronic medical record. You may view this report before your referring provider. If you have questions, please contact your health care provider. INDICATION: Chest pain. TECHNIQUE: CT chest PE was acquired with 95 cc add Isovue 370 IV contrast. MIP reconstructions were performed. COMPARISON: None. FINDINGS: Heart and vasculature: Contrast opacification of the pulmonary arterial tree is adequate. No sign of pulmonary embolism. Heart size is normal. Coronary artery calcifications. Thoracic aorta and pulmonary artery are normal in caliber. Lungs and pleura: Focal 10 millimeter ground-glass nodule in the right middle lobe. No focal consolidations. No pleural effusions, pleural thickening, or pneumothorax. Lymph nodes/mediastinum: No mediastinal, hilar, or axillary adenopathy. Chest wall: No masses. Upper abdomen: No acute or significant findings. Bones: Unremarkable for age. IMPRESSION: No pulmonary embolism as questioned. No focal consolidations. Incidental focal 10 millimeter ground-glass nodule in the right middle lobe, possibly infectious/inflammatory in etiology. Low-grade malignancy not excluded. Recommend follow-up CT in 6 months. Please note that all CT scans at this facility use dose modulation, iterative reconstruction, and/or weight-based dosing when appropriate to reduce radiation dose to as low as reasonably achievable. Dictated by Javier Mckinnon MD @ 01/28/2025 7:00:11 PM (Electronically Signed)
--- NOTE | 2025-01-28 16:52 | CRLHL7_ITS ---
For Patients: As a result of the Cures Act, medical imaging exams and procedure reports are released immediately into your electronic medical record. You may view this report before your referring provider. If you have questions, please contact your health care provider. INDICATION: Left shoulder and chest pain. Comparison none. Technique : Left shoulder 2 views. FINDINGS: No acute fracture or dislocation. Degenerative changes of glenohumeral joint. Advanced degenerative changes at the AC joint. There is narrowing of the acromiohumeral interval which may be secondary to rotator cuff tendinopathy. No fractures of the visualized lower ribs. Dictated by Fernandez Dillon MD @ 01/28/2025 6:40:35 PM (Electronically Signed)
[2025-01-28 17:04] LABS: Basophils Absolute Auto 0.04 K/uL (0.00-0.30); Basophils Percent Auto 0.5 % (0.0-3.0); Eosinophils Absolute Auto 0.04 K/uL (0.00-0.50); Eosinophils Percent Auto 0.5 % (0.0-7.0); Hematocrit 41.5 % (37.0-53.0); Immature Granulocytes Abs Auto 0.01 K/uL (0.00-0.30); Immature Granulocytes Pct Auto 0.1 %; Lymphocytes Percent Auto 11.9 % (20-44); Mean Corpuscular HGB Conc 34 gm/dL (32-36); Mean Corpuscular Hemoglobin 34 pg (26-34); Mean Corpuscular Volume 101 fL (80-100); Platelet Count* 190 K/uL (140-440); RDW Coefficient of Variation % 12.7 % (11.5-15.5); Red Blood Count 4.12 m/uL (4.30-5.90)
[2025-01-28 17:11] LABS: Slide Review Reflex No
[2025-01-28 17:15] LABS: Troponin, Point-of-Care* 0.01 ng/ml (0.01-0.04)
[2025-01-28 17:16] LABS: Chloride* 108 mmol/L (96-114); Potassium* 3.7 mmol/L (3.6-5.1); Sodium* 141 mmol/L (135-149)
[2025-01-28 17:19] LABS: Anion Gap 3 mEq/L (7-15); Blood Urea Nitrogen* 19 mg/dL (7-30); Calcium* 9.2 mg/dL (8.4-10.6); Carbon Dioxide* 30 mmol/L (20-32); Creatinine* 0.8 mg/dL (0.5-1.5); Est. Creatinine Clearance* 57.12; Estimated Glomerular Filt Rate 86 ml/min; Glucose* 129 mg/dL (60-115)
[2025-01-28] MEDS: ASPIRIN 81 MG TAB.CHEW 162 MG PO ×2 (17:35→18:21)
[2025-01-28] MEDS: fentaNYL 100 MCG/2 ML inj 25 MCG IVP (17:36)
[2025-01-28 18:12] VITALS: BP 161/87; PULSE 81; RESP 18; TEMP 36.4; O2SAT 97
[2025-01-28 19:42] LABS: Troponin, Point-of-Care* 0.02 ng/ml (0.01-0.04)
== END 2025-01-28 20:06 | disposition home or self-care (01) ==
PROVIDERS: Emergency Provider Emergency Medicine; PCP Family Medicine
DX: R07.9 Chest pain, unspecified (principal); F03.90 Unspecified dementia, unspecified severity, without behavioral disturbance, psychotic disturbance, mood disturbance, and anxiety; R91.1 Solitary pulmonary nodule
CPT/HCPCS: 36415; 71275; 73030; 80048; 84484; 85025; 96374; 99283; 99284; 99285; A9270; J3010; Q9967